=== PATIENT | male | born 1960 | race Caucasian/White ===

== ENCOUNTER 2017-03-20 08:18 | Day surgery (SDC) | payer MEDICARE ==
[2017-03-20] MEDS ORDERED: Sodium Chloride 0.9% 250 ML IV ONE (09:41)
[2017-03-20 10:12] VITALS: O2SAT 100
[2017-03-20] MEDS ORDERED: Propofol 10 mg/ml Inj (20 ML) ONE ×2 (11:10→11:36)
[2017-03-20 11:53] VITALS: TEMP 97
[2017-03-20 12:12] VITALS: BP 140/78; PULSE 68; RESP 12
== END 2017-03-20 12:14 | disposition home or self-care (01) ==
LOC: H.ENDO 08:18
PROVIDERS: ATTEND Internal Medicine Gastroenterology
DX: Z12.11 Encounter for screening for malignant neoplasm of colon (principal); Z21 Asymptomatic human immunodeficiency virus [HIV] infection status; N19 Unspecified kidney failure; K64.8 Other hemorrhoids; K74.60 Unspecified cirrhosis of liver; K25.9 Gastric ulcer, unspecified as acute or chronic, without hemorrhage or perforation; K31.819 Angiodysplasia of stomach and duodenum without bleeding
CPT/HCPCS: 43239; 88305; 88313; G0121; J2704; J7040

== ENCOUNTER 2017-06-17 07:33 | Day surgery (SDC) | payer MEDICARE ==
[2017-06-17] MEDS ORDERED: Sodium Chloride 0.9% 250 ML IV ONE (08:10)
[2017-06-17] MEDS ORDERED: Propofol 10 mg/ml Inj (20 ML) ONE (09:30)
[2017-06-17 10:00] VITALS: BP 130/68; PULSE 55; RESP 14; TEMP 96.8; O2SAT 98
== END 2017-06-17 10:14 | disposition home or self-care (01) ==
LOC: H.ENDO 07:33
PROVIDERS: ATTEND Internal Medicine Gastroenterology
DX: K29.70 Gastritis, unspecified, without bleeding (principal); K29.80 Duodenitis without bleeding; K76.6 Portal hypertension; K31.89 Other diseases of stomach and duodenum; Z21 Asymptomatic human immunodeficiency virus [HIV] infection status; K74.60 Unspecified cirrhosis of liver; B19.20 Unspecified viral hepatitis C without hepatic coma
CPT/HCPCS: 43239; 88305; J2001; J2704; J3010; J7040

== ENCOUNTER 2017-12-23 07:20 | Emergency (ER) | payer MEDICARE ==
[2017-12-23 07:27] VITALS: BMI 23.5
[2017-12-23 07:30] VITALS: BP 162/73; PULSE 74; RESP 16; TEMP 97; O2SAT 100
[2017-12-23] MEDS ORDERED: Sodium Chloride 0.9% 1,000 ML IV STA (07:51)
--- NOTE | 2017-12-23 07:56 | ED PDOC ---
HPI: Abdomen Time Seen by Provider: 12/23/17 07:32 Chief Complaint (Nursing): Back Pain Chief Complaint (Provider): Abd pain History Per: Patient History/Exam Limitations: no limitations Onset/Duration Of Symptoms: Days (1.5 weeks) Current Symptoms Are (Timing): Still Present Additional Complaint(s): Pt. fell 1.5 weeks ago onto his left abd. Has had pain there since. No numbness, tingles, weakness. Accidentally slipped on ice. No dysuria. No back pain. No nausea, vomit. No diarrhea. Ambulates with no issues. No chest pain or head injury. No arm or leg pain. Past Medical History Reviewed: Nursing Documentation, Vital Signs Vital Signs: Last Vital Signs Temp 97.0 F L 12/23/17 07:27 Pulse 74 12/23/17 07:27 Resp 16 12/23/17 07:27 BP 162/73 H 12/23/17 07:27 Pulse Ox 100 12/23/17 11:15 - Medical History PMH: HIV, HTN, Chronic Kidney Disease, Seizures - Family History Family History: States: Unknown Family Hx - Social History Alcohol: None Drugs: Denies - Home Medications Home Medications: Ambulatory Orders Medication Instructions Recorded Unobtainable 03/20/17 - Allergies Allergies/Adverse Reactions: Allergies Allergy/AdvReac Type Severity Reaction Status Date / Time sulfamethoxazole Allergy RASH Verified 06/17/17 08:09 [From Bactrim] trimethoprim [From Bactrim] Allergy RASH Verified 06/17/17 08:09 Review of Systems ROS Statement: Except As Marked, All Systems Reviewed And Found Negative Gastrointestinal: Positive for: Abdominal Pain Physical Exam - Reviewed Nursing Documentation Reviewed: Yes Vital Signs Reviewed: Yes - Physical Exam Appears: Positive for: Non-toxic, No Acute Distress Head Exam: Positive for: ATRAUMATIC, NORMAL INSPECTION, NORMOCEPHALIC Skin: Positive for: Normal Color, Warm, DRY Eye Exam: Positive for: EOMI, Normal appearance, PERRL ENT: Positive for: Normal ENT Inspection Neck: Positive for: Normal, Painless ROM Cardiovascular/Chest: Positive for: Regular Rate, Rhythm Respiratory: Positive for: CNT, Normal Breath Sounds Gastrointestinal/Abdominal: Positive for: Bowel Sounds, Soft, Tenderness (L lateral abd and L upper abd) Back: Positive for: Normal Inspection. Negative for: L CVA Tenderness, R CVA Tenderness Extremity: Positive for: Normal ROM. Negative for: Tenderness, Pedal Edema Neurologic/Psych: Positive for: Alert, Oriented - Laboratory Results Result Diagrams: 12/23/17 08:35 12/23/17 08:35 Interpretation Of Abn Labs: 12.7 wbc, lipase borderline; all else same as old - ECG O2 Sat by Pulse Oximetry: 100 Pulse Ox Interpretation: Normal - Progress ED Course And Treament: 1117: Stable. CT with no acute trauma or pancreatic issues. Lipase borderline. Likely not pancreatitis. Fu with pcp. AAOx3. Pain free. Disposition - Clinical Impression Clinical Impression: Abdominal trauma - Patient ED Disposition Is Patient to be Admitted: No Counseled Patient/Family Regarding: Studies Performed, Diagnosis, Need For Followup - Disposition Referrals: [facility] [Outside] - 12/24/17 Disposition: Routine/Home Disposition Time: 11:18 Condition: STABLE Additional Instructions: Return if not better in 3 days. Instructions: Acute Abdominal Pain (ED)
[2017-12-23 08:53] LABS: BASO # 0.1 K/uL (0.0-0.2); BASO % 0.6 % (0.0-2.0); EOS % 0.3 % (0.0-4.0); HEMOGLOBIN 12.5 g/dL (12.0-18.0); LYMPH # 1.2 K/uL (1.0-4.3); LYMPH % 9.7 % (20.0-40.0); MEAN CELL VOLUME 104.9 fl (80.0-94.0); MEAN CORPUSCULAR HEMOGLOBIN 34.6 pg (27.0-31.0); MEAN CORPUSCULAR HGB CONC 32.9 g/dL (33.0-37.0); MONO # 0.7 K/uL (0.0-0.8); MONO % 5.1 % (0.0-10.0); NEUT # 10.7 K/uL (1.8-7.0); NEUT % 84.3 % (50.0-75.0); NRBC % 0.1 % (0.0-0.0); PLATELET COUNT 74 K/uL (130-400); RED CELL DISTRIBUTION WIDTH 14.6 % (11.5-14.5); WHITE BLOOD COUNT 12.7 K/uL (4.8-10.8)
[2017-12-23 08:55] LABS: INR 1.1 (0.9-1.2); PARTIAL THROMBOPLASTIN TIME 27.1 Seconds (25.6-37.1); PROTHROMBIN TIME 12.4 Seconds (9.8-13.1)
[2017-12-23 08:57] LABS: ALB/GLOB RATIO 1.1 (1.0-2.1); ALT/SGPT 49 U/L (21-72); AST/SGOT 36 U/L (17-59); BLOOD UREA NITROGEN 21 mg/dl (9-20); CALCIUM 9.2 mg/dL (8.4-10.2); GFR AFRICAN-AMERICAN > 60; GFR NON-AFRICAN AMERICAN > 60; LIPASE 348 U/L (23-300)
--- NOTE | 2017-12-23 10:08 | CT ---
PROCEDURE: CT Abdomen and Pelvis with contrast HISTORY: trauma COMPARISON: Comparison is made to the previous study dated 03/11/2017 TECHNIQUE: Contrast dose: 95 cc of Omnipaque 300. Axial and reformatted coronal and sagittal CT images of the abdomen and pelvis were obtained after IV contrast administration. Radiation dose: Total exam DLP = 753.81 mGy-cm. This CT exam was performed using one or more of the following dose reduction techniques: Automated exposure control, adjustment of the mA and/or kV according to patient size, and/or use of iterative reconstruction technique. FINDINGS: LOWER THORAX: No evidence of pleural effusion or pneumothorax at the lower portion of the chest. No evidence of acute pathology in the lungs. LIVER: Cirrhotic appearing of the liver is again noted. No evidence of liver laceration or enhancing mass lesion in this study. The portal vein is patent. GALLBLADDER AND BILE DUCTS: Unremarkable. PANCREAS: Unremarkable. No gross lesion or ductal dilatation. SPLEEN: The spleen is upper normal limit measures up to 12.8 centimeter in the longitudinal diameter. ADRENALS: Unremarkable. No mass. KIDNEYS AND URETERS: Again noted is 5 millimeter nonobstructing calculus at the lower pole of the left kidney. There is 2- 3 millimeter nonobstructing calculus at the lower pole of the right kidney. No evidence of hydronephrosis. The kidneys enhance symmetrically. VASCULATURE: Unremarkable. No aortic aneurysm. BOWEL: Unremarkable. No obstruction. No gross mural thickening. APPENDIX: Normal appendix. PERITONEUM: Unremarkable. No free fluid. No free air. LYMPH NODES: Unremarkable. No enlarged lymph nodes. BLADDER: Unremarkable. REPRODUCTIVE: Unremarkable. BONES: No acute fracture. Diffuse osteoporosis is again noted. Subcortical sclerotic changes at the left femoral head are also again noted. OTHER FINDINGS: None. IMPRESSION: No CT evidence of acute posttraumatic changes in the abdomen and pelvis. Liver cirrhosis with findings suggestive of mild portal hypertension. Bilateral nonobstructing renal calculi. No evidence of hydronephrosis.
[2017-12-23 10:56] LABS: EOSINOPHIL 1 % (0-7); LYMPHOCYTE 7 % (20-50); MONOCYTE 6 % (0-10); NEUTROPHIL 86 % (42-75); PLATELET ESTIMATE DECREASED (NORMAL); TOTAL CELLS COUNTED 100
[2017-12-23 10:57] LABS: TOXIC GRANULATION PRESENT
== END 2017-12-23 11:47 | disposition home or self-care (01) ==
LOC: H.ER 07:20
DX: S39.91XA Unspecified injury of abdomen, initial encounter (principal); W19.XXXA Unspecified fall, initial encounter; I12.9 Hypertensive chronic kidney disease with stage 1 through stage 4 chronic kidney disease, or unspecified chronic kidney disease; N18.9 Chronic kidney disease, unspecified; Z21 Asymptomatic human immunodeficiency virus [HIV] infection status
CPT/HCPCS: 74177; 80053; 83690; 85025; 85610; 85730; 96374; 99283; J1885; J7040

== ENCOUNTER 2018-03-20 09:53 | Inpatient (IN) | payer MEDICARE ==
[2018-03-20 09:53] VITALS: BMI 23.5
[2018-03-20] MEDS ORDERED: Iohexol 240 (50 ml) PO ONE (10:40)
[2018-03-20] MEDS ORDERED: Iohexol 240 (50 ml) ONE (11:36)
[2018-03-20 12:09] LABS: ALB/GLOB RATIO 1.1 (1.0-2.1); ALT/SGPT 65 U/L (21-72); AST/SGOT 53 U/L (17-59); BLOOD UREA NITROGEN 30 mg/dl (9-20); CALCIUM 9.4 mg/dL (8.4-10.2); GFR AFRICAN-AMERICAN > 60; GFR NON-AFRICAN AMERICAN > 60; LIPASE 158 U/L (23-300)
[2018-03-20 12:43] LABS: BASO % 0.2 % (0.0-2.0); HEMOGLOBIN 12.5 g/dL (12.0-18.0); LYMPH # 1.5 K/uL (1.0-4.3); LYMPH % 9.3 % (20.0-40.0); MEAN CELL VOLUME 109.8 fl (80.0-94.0); MEAN CORPUSCULAR HEMOGLOBIN 36.6 pg (27.0-31.0); MEAN CORPUSCULAR HGB CONC 33.4 g/dL (33.0-37.0); MEAN PLATELET VOLUME 10.2 fl (7.2-11.7); MONO # 0.9 K/uL (0.0-0.8); MONO % 5.7 % (0.0-10.0); NEUT % 84.8 % (50.0-75.0); PLATELET COUNT 62 K/uL (130-400); RBC 3.42 Mil/uL (4.40-5.90); RED CELL DISTRIBUTION WIDTH 14.2 % (11.5-14.5); WHITE BLOOD COUNT 16.5 K/uL (4.8-10.8)
[2018-03-20] MEDS ORDERED: Iohexol 300 100 ML IJ ONE (13:22)
[2018-03-20] MEDS ORDERED: Sodium Chloride 0.9% 1,000 ML IV SCH (14:00)
[2018-03-20 14:30] LABS: BANDS 2 % (0-2); LYMPHOCYTE 9 % (20-50); METAMYELOCYTE 1 % (0-0); MONOCYTE 6 % (0-10); NEUTROPHIL 82 % (42-75); TOTAL CELLS COUNTED 100
[2018-03-20 14:31] LABS: ANISOCYTOSIS SLIGHT; PLATELET ESTIMATE DECREASED (NORMAL)
--- NOTE | 2018-03-20 14:46 | CT ---
PROCEDURE: CT Abdomen and Pelvis with contrast HISTORY: Abdominal pain COMPARISON: 12/23/2017 CT abdomen and pelvis. 03/01/2018 abdominal ultrasound TECHNIQUE: Contrast dose: 99 cc Omnipaque 300 Radiation dose: Total exam DLP = 524.40 mGy-cm. This CT exam was performed using one or more of the following dose reduction techniques: Automated exposure control, adjustment of the mA and/or kV according to patient size, and/or use of iterative reconstruction technique. FINDINGS: LOWER THORAX: Unremarkable. LIVER: Stable cirrhotic appearing liver. GALLBLADDER AND BILE DUCTS: Unremarkable. PANCREAS: Unremarkable. No gross lesion or ductal dilatation. SPLEEN: Stable splenomegaly ADRENALS: Unremarkable. No mass. KIDNEYS AND URETERS: Multiple small and bilateral nonobstructing renal calculi. Ureters are normal in caliber and course. VASCULATURE: Unremarkable. No aortic aneurysm. BOWEL: Severe inflammatory changes affecting the ascending colon over a distance of approximately 12 cm. Mucosal/mural thickening identified. Pericolonic inflammatory change noted. No evidence of perforation, loculated air or free air. APPENDIX: The appendix is spared of the adjacent inflammatory changes affecting the cecum and ascending colon PERITONEUM: Unremarkable. No free fluid. No free air. LYMPH NODES: Unremarkable. No enlarged lymph nodes. BLADDER: Unremarkable. REPRODUCTIVE: Unremarkable. BONES: OTHER FINDINGS: None. IMPRESSION: Severe/acute segmental colitis affecting cecum and adjacent ascending colon with sparing of the appendix. The terminal ileum is also unaffected
[2018-03-20] MEDS ORDERED: Piperacillin/Tazobact 4.5 GM in Sodium Chloride 0.9% 100 ML IVPB STA (15:08)
--- NOTE | 2018-03-20 15:36 | ED PDOC ---
HPI: Abdomen Time Seen by Provider: 03/20/18 10:37 Chief Complaint (Nursing): Abdominal Pain Chief Complaint (Provider): Abdominal Pain History Per: Patient History/Exam Limitations: no limitations Onset/Duration Of Symptoms: Days (2) Outside of [place] travel?: No Current Symptoms Are (Timing): Still Present Location Of Pain/Discomfort: RUQ Quality Of Discomfort: Dull, Aching, Pressure Associated Symptoms: Loss Of Appetite Exacerbating Factors: None Past Medical History Vital Signs: Last Vital Signs Temp 98.4 F 03/20/18 19:34 Pulse 77 03/20/18 19:34 Resp 16 03/20/18 19:34 BP 140/76 03/20/18 19:34 Pulse Ox 99 03/20/18 19:34 - Medical History PMH: HIV, HTN, Chronic Kidney Disease, Seizures Other PMH: chirrosis - Family History Family History: States: Unknown Family Hx - Home Medications Home Medications: Ambulatory Orders Medication Instructions Recorded Allopurinol [Zyloprim] 1 tab PO DAILY 03/20/18 Atorvastatin Calcium [Atorvastatin 20 mg PO DAILY 03/20/18 Calcium] Bictegrav/Emtricit/Tenofov [place] 1 tab PO DAILY 03/20/18 [Biktarvy 50-200-25 mg Tablet] Gabapentin [Neurontin] 1 tab PO TID 03/20/18 Metoprolol Tartrate [Lopressor] 1 tab PO BID 03/20/18 Omeprazole [Omeprazole] 1 cap PO DAILY 03/20/18 Prednisone [Prednisone] 1 tab PO Q8 03/20/18 SITagliptin [Januvia] 1 tab PO DAILY 03/20/18 Valsartan [Diovan] 1 tab PO DAILY 03/20/18 oxyCODONE [oxyCODONE Immediate 1 tab PO Q6 PRN 03/20/18 Release Tab] - Allergies Allergies/Adverse Reactions: Allergies Allergy/AdvReac Type Severity Reaction Status Date / Time sulfamethoxazole Allergy RASH Verified 06/17/17 08:09 [From Bactrim] trimethoprim [From Bactrim] Allergy RASH Verified 06/17/17 08:09 Review of Systems ROS Statement: Except As Marked, All Systems Reviewed And Found Negative Gastrointestinal: Positive for: Abdominal Pain Physical Exam - Reviewed Nursing Documentation Reviewed: Yes Vital Signs Reviewed: Yes - Physical Exam Appears: Positive for: No Acute Distress, Uncomfortable Head Exam: Positive for: ATRAUMATIC, NORMAL INSPECTION Skin: Positive for: Normal Color, Warm, Rash Cardiovascular/Chest: Positive for: Regular Rate, Rhythm. Negative for: Edema, Gallop, Murmur, Bradycardia, Tachycardia, Friction Rub, Irregularly Irregular Respiratory: Positive for: Normal Breath Sounds. Negative for: Decreased Breath Sounds, Accessory Muscle Use, Crackles, Rales, Rhonchi, Wheezing, Respiratory Distress Pulses-Carotid (L): 2+ Pulses-Carotid (R): 2+ Pulses-Radial (L): 2+ Pulses-Radial (R): 2+ Gastrointestinal/Abdominal: Positive for: Normal Exam, Bowel Sounds (positive in all quadrants), Tenderness (LUQ tender without periotneal signs, rebound or guarding), Distended, Asicites (mild ascites) - Laboratory Results Result Diagrams: 03/20/18 11:00 03/20/18 11:36 - ECG O2 Sat by Pulse Oximetry: 98 Medical Decision Making Medical Decision Making: R/O liver failure R/O acute abdomen Admit for colitis with significant comorbidities- HIV, HTN, chirrosis, and elevated white count ED course- CT Abdomen,CBC,CMP, UA Tx with zosyn Admit to Disposition - Clinical Impression Clinical Impression: Colitis presumed infectious - Patient ED Disposition Is Patient to be Admitted: Yes Discussed With : Charlee Gibson (via resident) Doctor Will See Patient In The: Hospital Counseled Patient/Family Regarding: Studies Performed, Diagnosis, Need For Followup - Disposition Disposition Time: 15:36 Condition: STABLE - Pt Status Changed To: Hospital Disposition Of: Inpatient - Admit Certification Admit to Inpatient:: After my assessment, the patient will require hospitalization for at least two midnights. This is because of the severity of symptoms shown, intensity of services needed, and/or the medical risk in this patient being treated as an outpatient.
[2018-03-20 15:51] LABS: VENOUS BLOOD GAS PCO2 49 mmHg (40-60); VENOUS BLOOD GAS PO2 21 mm/Hg (30-55); VENOUS BLOOD PH 7.38 (7.32-7.43)
--- NOTE | 2018-03-20 17:54 | CP.PCM.CON ---
History of Present Illness - History of Present Illness History of Present Illness: 57 yo male with DM and HIV coming to ER for intractable abdominal pain. Review of Systems - Constitutional Constitutional: absent: Chills - EENT Eyes: absent: Blurred Vision Nose/Mouth/Throat: absent: Epistaxis - Cardiovascular Cardiovascular: absent: Chest Pain - Respiratory Respiratory: Snoring. absent: Cough - Gastrointestinal Gastrointestinal: As Per HPI Past Patient History - Past Medical History & Family History Past Medical History?: Yes - Past Social History Smoking Status: Heavy Smoker > 10 Cigarettes Daily - CARDIAC Hx Hypertension: Yes - NEUROLOGICAL Hx Seizures: Yes - RENAL Hx Chronic Kidney Disease: Yes - ENDOCRINE/METABOLIC Hx Endocrine Disorders: Yes Hx Diabetes Mellitus Type 2: Yes - HEMATOLOGICAL/ONCOLOGICAL Hx Human Immunodeficiency Virus (HIV): Yes - INTEGUMENTARY Hx Dermatological Problems: Yes Hx Eczema: Yes - GASTROINTESTINAL Hx Ulcer: Yes Other/Comment: Liver Cirrhosis - PSYCHIATRIC Hx Psychophysiologic Disorder: Yes Hx Substance Use: No - SURGICAL HISTORY Hx Surgeries: Yes Hx Arthroscopy: Yes - ANESTHESIA Hx Anesthesia: Yes Hx Anesthesia Reactions: No Hx Malignant Hyperthermia: No Meds Allergies/Adverse Reactions: Allergies Allergy/AdvReac Type Severity Reaction Status Date / Time sulfamethoxazole Allergy RASH Verified 06/17/17 08:09 [From Bactrim] trimethoprim [From Bactrim] Allergy RASH Verified 06/17/17 08:09 - Medications Medications: Current Medications Sodium Chloride (Sodium Chloride 0.9%) 1,000 mls @ 1,000 mls/hr IV .Q1H VASILE Stop: 03/21/18 13:46 Last Admin: 03/20/18 14:30 Dose: 1,000 mls/hr Physical Exam - Head Exam Head Exam: ATRAUMATIC - ENT Exam ENT Exam: Normal Exam - Neck Exam Neck exam: Positive for: Normal Inspection - Respiratory Exam Respiratory Exam: Clear to Auscultation Bilateral - Cardiovascular Exam Cardiovascular Exam: REGULAR RHYTHM, +S1, +S2 - GI/Abdominal Exam GI & Abdominal Exam: Normal Bowel Sounds, Soft, Tenderness Additional comments: Moderate tenderness right side of abdomen. No guarding or rebound. Results - Vital Signs Recent Vital Signs: Last Vital Signs Temp 99.5 F 03/20/18 10:05 Pulse 98 H 03/20/18 10:05 Resp 19 03/20/18 10:05 BP 122/73 05/04/18 10:05 Pulse Ox 98 03/20/18 15:36 - Labs Result Diagrams: 03/20/18 11:00 03/20/18 11:36 Labs: Laboratory Results - last 24 hr 03/20/18 03/20/18 03/20/18 11:00 11:11 11:36 WBC 16.5 H RBC 3.42 L Hgb 12.5 Hct 37.5 MCV 109.8 H D MCH 36.6 H MCHC 33.4 RDW 14.2 Plt Count 62 L MPV 10.2 Neut % (Auto) 84.8 H Lymph % (Auto) 9.3 L [place] % (Auto) 5.7 Eos % (Auto) 0.0 Baso % (Auto) 0.2 Neut # (Auto) 14.0 H Lymph # (Auto) 1.5 [place] # (Auto) 0.9 H Eos # (Auto) 0.0 Baso # (Auto) 0.0 Neutrophils % (Manual) 82 H Band Neutrophils % 2 Lymphocytes % (Manual) 9 L Monocytes % (Manual) 6 Metamyelocytes % 1 H Platelet Estimate Decreased L Anisocytosis (manual) Slight Macrocytosis (manual) Slight pO2 VBG pH VBG pCO2 VBG HCO3 VBG Total CO2 VBG O2 Sat (Calc) VBG Base Excess VBG Potassium Glucose Lactate FiO2 Sodium 135 Potassium 4.9 Chloride 97 L Carbon Dioxide 26 Anion Gap 17 BUN 30 H Creatinine 0.8 Est GFR ( Amer) > 60 Est GFR (Non-Af Amer) > 60 POC Glucose (mg/dL) 124 H Random Glucose 132 H Lactic Acid Calcium 9.4 Total Bilirubin 0.9 AST 53 ALT 65 Alkaline Phosphatase 105 Total Protein 7.6 Albumin 4.0 Globulin 3.5 Albumin/Globulin Ratio 1.1 Lipase 158 Venous Blood Potassium 03/20/18 03/20/18 11:36 15:11 WBC RBC Hgb Hct MCV MCH MCHC RDW Plt Count MPV Neut % (Auto) Lymph % (Auto) [place] % (Auto) Eos % (Auto) Baso % (Auto) Neut # (Auto) Lymph # (Auto) [place] # (Auto) Eos # (Auto) Baso # (Auto) Neutrophils % (Manual) Band Neutrophils % Lymphocytes % (Manual) Monocytes % (Manual) Metamyelocytes % Platelet Estimate Anisocytosis (manual) Macrocytosis (manual) pO2 21 L VBG pH 7.38 VBG pCO2 49 VBG HCO3 25.5 VBG Total CO2 30.5 H VBG O2 Sat (Calc) 31.0 L VBG Base Excess 3.0 H VBG Potassium 4.6 Glucose 136 H Lactate 1.9 FiO2 21.0 Sodium 132.0 Potassium Chloride 98.0 Carbon Dioxide Anion Gap BUN Creatinine Est GFR ( Amer) Est GFR (Non-Af Amer) POC Glucose (mg/dL) Random Glucose Lactic Acid 2.3 H Calcium Total Bilirubin AST ALT Alkaline Phosphatase Total Protein Albumin Globulin Albumin/Globulin Ratio Lipase Venous Blood Potassium 4.6 - Imaging and Cardiology CT scan - abdomen Status: Report reviewed by me Assessment & Plan (1) Colitis presumed infectious Assessment and Plan: Patient with abdominal pain, elevated WBC, and CT showing severe inflammation ascending colon over 12 cm. Clinical picture most consistent with infection. IV hydration and broad spectrum antibiotics. Will follow with you. Status: Acute
[2018-03-20] MEDS ORDERED: metroNIDAZOLE 500mg/100ml NS 250 MG in Premixed IV 1 EA IVPB SCH (18:30)
[2018-03-20] MEDS ORDERED: metroNIDAZOLE 500mg/100ml NS IVPB SCH (18:30)
--- NOTE | 2018-03-20 18:41 | CARD ---
APPROVED REPORT EKG Measurement Heart [id number] <Conclusion> Normal sinus rhythm Possible Left atrial enlargement Left ventricular hypertrophy Nonspecific ST abnormality Abnormal ECG
--- NOTE | 2018-03-20 19:16 | CP.PCM.HP ---
History of Present Illness - History of Present Illness History of Present Illness: Hx taken from patient Full code PMD: Dr Jordan([facility]) Next of kin: Kiya Castañeda( [phone]) 57 y/o M with PMHx of HIV, Liver cirrhosis, polymyositis and DM was sent to ER by PMD with c/o RLQ pain for the past 4 days. As per patient pain doesnt radiate, denies nausea, vomiting, diarrhea, dysuria. Admits fever last night and earlier today of 101. Cough for 2 days. Pain worsened for the past 2 days. Has been feeling weaker than usual. He reports Hx of polymyositis treated with Prednisone 15 mg daily and chronic pain for what he f/u with pain management as outpatient. Traveled to [place] few months ago. No other travel Hx. New onset rash in legs and arm for the past few weeks. States he has been compliant with meds. Denies melena, hematochezia. Patient has hx of Hep C, treated and "cured" as per patient. Denies ETOH or drugs. ED course: WBC: 16.5 Initial Lactate elevated, repeated WNL Abd CT: Severe colitis affecting Cecum and ascending colon(See full report) IV fluids 1L Zosyn 4.5g IV once GI consulted PMHx: See HPI Sxhx: L/TKR SHx: Tobacco: 2-3 cig/day FHx: Mother: Breast Ca/DM Allergies: Bactrim Present on Admission - Present on Admission Any Indicators Present on Admission: No Review of Systems - Review of Systems All systems: reviewed and no additional remarkable complaints except (Those described on HPI) Past Patient History - Past Medical History & Family History Past Medical History?: Yes - Past Social History Smoking Status: Light Smoker < 10 Cigarettes Daily Alcohol: Occasional Home Situation {Lives}: With Family - CARDIAC Hx Hypertension: Yes - PULMONARY Hx Respiratory Disorders: No - NEUROLOGICAL Hx Seizures: Yes - HEENT Hx HEENT Problems: No - RENAL Hx Chronic Kidney Disease: No - ENDOCRINE/METABOLIC Hx Endocrine Disorders: Yes Hx Diabetes Mellitus Type 2: Yes - HEMATOLOGICAL/ONCOLOGICAL Hx Blood Disorders: Yes Hx Hepatitis C: Yes Hx Human Immunodeficiency Virus (HIV): Yes - INTEGUMENTARY Hx Dermatological Problems: Yes Hx Eczema: Yes - MUSCULOSKELETAL/RHEUMATOLOGICAL Hx Musculoskeletal Disorders: Yes - GASTROINTESTINAL Hx Gastrointestinal Disorders: Yes Hx Ulcer: Yes Other/Comment: Liver Cirrhosis - GENITOURINARY/GYNECOLOGICAL Hx Genitourinary Disorders: No - PSYCHIATRIC Hx Psychophysiologic Disorder: Yes Hx Substance Use: No - SURGICAL HISTORY Hx Surgeries: Yes Hx Arthroscopy: Yes - ANESTHESIA Hx Anesthesia: Yes Hx Anesthesia Reactions: No Hx Malignant Hyperthermia: No Meds Allergies/Adverse Reactions: Allergies Allergy/AdvReac Type Severity Reaction Status Date / Time sulfamethoxazole Allergy RASH Verified 06/17/17 08:09 [From Bactrim] trimethoprim [From Bactrim] Allergy RASH Verified 06/17/17 08:09 Physical Exam - Constitutional Appears: Non-toxic, No Acute Distress - Head Exam Head Exam: ATRAUMATIC, NORMAL INSPECTION - Eye Exam Eye Exam: EOMI, PERRL - ENT Exam ENT Exam: Mucous Membranes Moist - Neck Exam Neck exam: Negative for: Lymphadenopathy - Respiratory Exam Respiratory Exam: Clear to Auscultation Bilateral, NORMAL BREATHING PATTERN. absent: Decreased Breath Sounds, Rales, Rhonchi, Wheezes - Cardiovascular Exam Cardiovascular Exam: REGULAR RHYTHM, +S1, +S2. absent: Gallop - GI/Abdominal Exam GI & Abdominal Exam: Distended (Slightly), Soft, Tenderness (RLQ). absent: Rebound, Rigid - Extremities Exam Extremities exam: Positive for: normal capillary refill. Negative for: calf tenderness, pedal edema Additional comments: LE Strength 4/5 B/L - Back Exam Back exam: absent: CVA tenderness (L), CVA tenderness (R) - Neurological Exam Neurological exam: Alert, Oriented x3, Reflexes Normal - Psychiatric Exam Psychiatric exam: Normal Affect, Normal Mood - Skin Skin Exam: Rash (Maculopapular scaly, nonconfluent, dry rash in both legs and arm), Warm Results - Vital Signs Recent Vital Signs: Last Vital Signs Temp 99.5 F 03/20/18 10:05 Pulse 98 H 03/20/18 10:05 Resp 19 03/20/18 10:05 BP 122/73 03/20/18 10:05 Pulse Ox 98 03/20/18 15:36 - Labs Result Diagrams: 03/20/18 11:00 03/20/18 11:36 Labs: Laboratory Results - last 24 hr 03/20/18 03/20/18 03/20/18 11:00 11:11 11:36 WBC 16.5 H RBC 3.42 L Hgb 12.5 Hct 37.5 MCV 109.8 H D MCH 36.6 H MCHC 33.4 RDW 14.2 Plt Count 62 L MPV 10.2 Neut % (Auto) 84.8 H Lymph % (Auto) 9.3 L [place] % (Auto) 5.7 Eos % (Auto) 0.0 Baso % (Auto) 0.2 Neut # (Auto) 14.0 H Lymph # (Auto) 1.5 [place] # (Auto) 0.9 H Eos # (Auto) 0.0 Baso # (Auto) 0.0 Neutrophils % (Manual) 82 H Band Neutrophils % 2 Lymphocytes % (Manual) 9 L Monocytes % (Manual) 6 Metamyelocytes % 1 H Platelet Estimate Decreased L Anisocytosis (manual) Slight Macrocytosis (manual) Slight pO2 VBG pH VBG pCO2 VBG HCO3 VBG Total CO2 VBG O2 Sat (Calc) VBG Base Excess VBG Potassium Glucose Lactate FiO2 Sodium 135 Potassium 4.9 Chloride 97 L Carbon Dioxide 26 Anion Gap 17 BUN 30 H Creatinine 0.8 Est GFR ( Amer) > 60 Est GFR (Non-Af Amer) > 60 POC Glucose (mg/dL) 124 H Random Glucose 132 H Lactic Acid Calcium 9.4 Total Bilirubin 0.9 AST 53 ALT 65 Alkaline Phosphatase 105 Total Protein 7.6 Albumin 4.0 Globulin 3.5 Albumin/Globulin Ratio 1.1 Lipase 158 Venous Blood Potassium 03/20/18 03/20/18 11:36 15:11 WBC RBC Hgb Hct MCV MCH MCHC RDW Plt Count MPV Neut % (Auto) Lymph % (Auto) [place] % (Auto) Eos % (Auto) Baso % (Auto) Neut # (Auto) Lymph # (Auto) [place] # (Auto) Eos # (Auto) Baso # (Auto) Neutrophils % (Manual) Band Neutrophils % Lymphocytes % (Manual) Monocytes % (Manual) Metamyelocytes % Platelet Estimate Anisocytosis (manual) Macrocytosis (manual) pO2 21 L VBG pH 7.38 VBG pCO2 49 VBG HCO3 25.5 VBG Total CO2 30.5 H VBG O2 Sat (Calc) 31.0 L VBG Base Excess 3.0 H VBG Potassium 4.6 Glucose 136 H Lactate 1.9 FiO2 21.0 Sodium 132.0 Potassium Chloride 98.0 Carbon Dioxide Anion Gap BUN Creatinine Est GFR ( Amer) Est GFR (Non-Af Amer) POC Glucose (mg/dL) Random Glucose Lactic Acid 2.3 H Calcium Total Bilirubin AST ALT Alkaline Phosphatase Total Protein Albumin Globulin Albumin/Globulin Ratio Lipase Venous Blood Potassium 4.6 Assessment & Plan - Assessment and Plan (Free Text) Assessment: 57 y/o M with PMhx of HIV, DM, HTN, Liver cirrhosis admitted for Severe Colitis Colitis Acute Abd pain CT scan findings(Cecum and ascending colon) Fever before admission Leukocytosis GI consult Start Zosyn and Flagyl IV Liquid diet F/U Labs AM HIV without AIDS CD4 573 with Undetectable VL on 02/20/18 C/W Home meds F/U CXR ID consult Cough fever before admission F/U CXR VS WNL Liver cirrhosis Poss due to Hx of Hep C Liver enzimes and albumin WNL Hx of polymyositis Hold low dose prednisone for now due to fever and poss intrabd infection Muscle weakness F/U ESR Pain control Thrombocitopenia Chronic Monitor Rash Unknown Connective tissue disease vs Eczema vs Psoriasis Apply skin emollients for now DM2 Controlled with diet Steroid induced F/U HgbA1c Accuchecks AM Hypoglycemia protocol DVT prophylaxis SCDs for now
[2018-03-20] MEDS: metroNIDAZOLE 500mg/100ml NS 100 ML IVPB SCH (22:14)
[2018-03-20] MEDS: Sodium Chloride 0.9% 1,000 ML IV SCH (22:15)
[2018-03-20] MEDS: Hydrocerin CREAM TOP SCH (22:15)
[2018-03-20] MEDS: Piperacillin/Tazobact 3.375 GM in Sodium Chloride 0.9% 100 ML IVPB SCH (23:30)
[2018-03-21] MEDS: metroNIDAZOLE 500mg/100ml NS 100 ML IVPB SCH ×3 (01:58→17:52)
[2018-03-21] MEDS: Piperacillin/Tazobact 3.375 GM in Sodium Chloride 0.9% 100 ML IVPB SCH ×4 (04:44→21:03)
[2018-03-21 05:33] LABS: BASO % 0.2 % (0.0-2.0); EOS % 0.4 % (0.0-4.0); HEMOGLOBIN 10.5 g/dL (12.0-18.0); LYMPH # 1.2 K/uL (1.0-4.3); LYMPH % 16.7 % (20.0-40.0); MEAN CELL VOLUME 109.5 fl (80.0-94.0); MEAN CORPUSCULAR HEMOGLOBIN 37.1 pg (27.0-31.0); MEAN CORPUSCULAR HGB CONC 33.9 g/dL (33.0-37.0); MEAN PLATELET VOLUME 9.5 fl (7.2-11.7); MONO # 0.5 K/uL (0.0-0.8); MONO % 6.7 % (0.0-10.0); NEUT # 5.4 K/uL (1.8-7.0); RBC 2.84 Mil/uL (4.40-5.90); RED CELL DISTRIBUTION WIDTH 14.1 % (11.5-14.5); WHITE BLOOD COUNT 7.1 K/uL (4.8-10.8)
[2018-03-21 06:23] LABS: ALBUMIN 3.2 g/dL (3.5-5.0); ALT/SGPT 58 U/L (21-72); AST/SGOT 38 U/L (17-59); BLOOD UREA NITROGEN 26 mg/dl (9-20); CALCIUM 8.5 mg/dL (8.4-10.2); GFR AFRICAN-AMERICAN > 60; GFR NON-AFRICAN AMERICAN > 60
[2018-03-21 06:40] LABS: INR 1.1 (0.9-1.2); PARTIAL THROMBOPLASTIN TIME 28.1 Seconds (25.6-37.1); PROTHROMBIN TIME 12.3 Seconds (9.8-13.1)
--- NOTE | 2018-03-21 07:27 | CP.PCM.PN ---
Subjective - Date & Time of Evaluation Date of Evaluation: 03/21/18 Time of Evaluation: 07:00 - Subjective Subjective: Pt seen and examined at bedside. Pt states continued abdominal pain as well as b /l lower extremity pain. Denies fevers/chills, n/v/d, chest pain, SOB, dyspnea, cough, calf tenderness, or pedal edema. Objective - Vital Signs/Intake and Output Vital Signs (last 24 hours): Temp Pulse Resp BP Pulse Ox 97.6 F 73 18 157/74 H 97 03/21/18 05:02 03/21/18 05:02 03/21/18 05:02 03/21/18 05:02 03/21/18 05:02 - Medications Medications: Current Medications Home Med (Bictegrav/Emtricit/Tenofov Ala [Biktarvy 50-200-25 Mg Tablet]) 1 tab PO DAILY [facility] Sodium Chloride (Sodium Chloride 0.9%) 1,000 mls @ 1,000 mls/hr IV .Q1H [facility] Stop: 03/21/18 13:46 Last Admin: 03/20/18 14:30 Dose: 1,000 mls/hr Piperacillin Sod/Tazobactam (Sod 3.375 gm/ Sodium Chloride) 100 mls @ 100 mls/ hr IVPB Q6 [facility] PRN Reason: Protocol Last Admin: 03/21/18 04:44 Dose: 100 mls/hr Metronidazole (Flagyl 500mg/100ml Ns) 100 mls @ 100 mls/hr IVPB Q6H [facility] Last Admin: 03/21/18 01:58 Dose: Not Given Sodium Chloride (Sodium Chloride 0.9%) 1,000 mls @ 100 mls/hr IV .Q10H [facility] Stop: 03/21/18 18:28 Last Admin: 03/20/18 22:15 Dose: 100 mls/hr Ketorolac Tromethamine (Toradol) 30 mg IVP Q6 PRN PRN Reason: Pain, severe (8-10) Ketorolac Tromethamine (Toradol) 15 mg IVP Q6 PRN PRN Reason: Pain, moderate (4-7) Last Admin: 03/20/18 22:16 Dose: 15 mg Metoprolol Tartrate (Lopressor) 100 mg PO BID [facility] Multi-Ingredient Cream (Hydrocerin Cream) 1 applic TOP BID [facility] Last Admin: 03/20/18 22:15 Dose: 1 applic Pantoprazole Sodium (Protonix Ec Tab) 20 mg PO DAILY [facility] Sitagliptin Phosphate (Januvia) 100 mg PO DAILY [facility] Valsartan (Diovan) 320 mg PO DAILY [facility] - Labs Labs: 03/21/18 04:40 03/21/18 04:40 PT 12.3 Seconds (9.8-13.1) 03/21/18 04:40 INR 1.1 (0.9-1.2) 03/21/18 04:40 APTT 28.1 Seconds (25.6-37.1) 03/21/18 04:40 - Additional Findings Additional findings: - Constitutional Appears: Non-toxic, No Acute Distress - Eye Exam Eye Exam: EOMI, PERRL - ENT Exam ENT Exam: Mucous Membranes Moist - Neck Exam Neck exam: Negative for: Lymphadenopathy - Respiratory Exam Respiratory Exam: Clear to Auscultation Bilateral, NORMAL BREATHING PATTERN. absent: Decreased Breath Sounds, Rales, Rhonchi, Wheezes - Cardiovascular Exam Cardiovascular Exam: REGULAR RHYTHM, +S1, +S2. absent: Gallop - GI/Abdominal Exam GI & Abdominal Exam: Soft, Tenderness (moderate RLQ). absent: Rebound, Rigid - Extremities Exam Extremities exam: Positive for: normal capillary refill. Negative for: calf tenderness, pedal edema Additional comments: LE Strength 4/5 B/L - Skin Skin Exam: Rash (Maculopapular scaly, nonconfluent, dry rash in both legs and arm), Warm Assessment and Plan - Assessment and Plan (Free Text) Assessment: 57 y/o M with PMhx of HIV, DM, HTN, Liver cirrhosis admitted for Severe Colitis 1) Colitis Acute Abd pain CT scan findings show acute/severe segmental (Cecum and ascending colon) colitis Subjective fever before admission Leukocytosis GI onboard ID onboard Zosyn and Flagyl IV, as per ID Liquid diet 2) HIV without AIDS CD4 573 with Undetectable VL on 02/20/18 C/W Home meds ID onboard 3) Cough fever before admission VSS WNL F/U CXR 4) Liver cirrhosis Poss due to Hx of Hep C Liver enzimes and albumin WNL 5) Hx of polymyositis Hold low dose prednisone for now due to fever and poss intrabd infection Muscle weakness Pain control F/U ESR 6) Thrombocitopenia Chronic Monitor 7) Rash Unknown Connective tissue disease vs Eczema vs Psoriasis Apply skin emollients for now 8) DM2 Controlled with diet Steroid induced - HELD due to possible infection Hypoglycemia protocol Accuchecks AM 9) b/l lower extremity pain Neuropathy v polymyositis sequelae Allopurinol Gabapentin OxyCodone 10) DVT prophylaxis SCDs for now
[2018-03-21] MEDS: Pantoprazole 20 mg EC Tab PO SCH (08:50)
[2018-03-21] MEDS: Hydrocerin CREAM TOP SCH ×2 (09:00→18:06)
[2018-03-21] MEDS: oxyCODONE 10 mg Immediate Release Tab PO PRN ×2 (10:04→17:51)
--- NOTE | 2018-03-21 11:00 | CP.PCM.CON ---
History of Present Illness - History of Present Illness History of Present Illness: Infectious Disease Consultation Note- Asked to see this patient at the request of family practice team for fever/ colitis in HIV pos patient. HPI- Patient is a 57 year old male with PMH of HIV f/u with , HTN, DM II , Polymyositis on prednisone for this, who is admitted with c/o abdominal pian for past few days. patient describes the pain as mostly in the left lower quadrant , no radiation, no nausea or vomiting and no diarrhea but states this morning he has developed diarrhea and rectal bleed from his hemorrhoids. he states his abd pain better today. He also explains his HAART meds was changed about a month ago by his HIV doctor and he also mentions he has developed itchy rash n his legs past few weeks and is not sure what it is from. pt. states he traveled to [place] a month ago but denies any other travel. ED course: WBC: 16.5 Initial Lactate elevated, repeated WNL Abd CT: Severe colitis affecting Cecum and ascending colon(See full report) IV fluids 1L Zosyn 4.5g IV once PMHx: See HPI Sxhx: L/TKR SHx: Tobacco: 2-3 cig/day Allergies: Bactrim Review of Systems - Review of Systems Review of Systems: ROS_ denies any [place], denies any cough, denies any sob,denies any chest pain, + left lower abdominal pian, no nausea or vomiting, diarrhea with rectal bleed today only as per pt. no chills,no fever itchy rash in b/l legs for few weeks Past Patient History - Past Medical History & Family History Past Medical History?: Yes - Past Social History Smoking Status: Light Smoker < 10 Cigarettes Daily Alcohol: Occasional Drugs: Denies Home Situation {Lives}: With Family - CARDIAC Hx Hypertension: Yes - PULMONARY Hx Respiratory Disorders: No - NEUROLOGICAL Hx Seizures: Yes - HEENT Hx HEENT Problems: No - RENAL Hx Chronic Kidney Disease: No - ENDOCRINE/METABOLIC Hx Endocrine Disorders: Yes Hx Diabetes Mellitus Type 2: Yes - HEMATOLOGICAL/ONCOLOGICAL Hx Blood Disorders: Yes Hx Hepatitis C: Yes Hx Human Immunodeficiency Virus (HIV): Yes - INTEGUMENTARY Hx Dermatological Problems: Yes Hx Eczema: Yes - MUSCULOSKELETAL/RHEUMATOLOGICAL Hx Musculoskeletal Disorders: Yes - GASTROINTESTINAL Hx Gastrointestinal Disorders: Yes Hx Ulcer: Yes Other/Comment: Liver Cirrhosis - GENITOURINARY/GYNECOLOGICAL Hx Genitourinary Disorders: No - PSYCHIATRIC Hx Psychophysiologic Disorder: Yes Hx Substance Use: No - SURGICAL HISTORY Hx Surgeries: Yes Hx Arthroscopy: Yes - ANESTHESIA Hx Anesthesia: Yes Hx Anesthesia Reactions: No Hx Malignant Hyperthermia: No Meds Allergies/Adverse Reactions: Allergies Allergy/AdvReac Type Severity Reaction Status Date / Time sulfamethoxazole Allergy RASH Verified 06/17/17 08:09 [From Bactrim] trimethoprim [From Bactrim] Allergy RASH Verified 06/17/17 08:09 - Medications Medications: Current Medications Atorvastatin Calcium (Lipitor) 20 mg PO DAILY [facility] Gabapentin (Neurontin) 800 mg PO TID [facility] Home Med (Bictegrav/Emtricit/Tenofov Ala [Biktarvy 50-200-25 Mg Tablet]) 1 tab PO DAILY [facility] Piperacillin Sod/Tazobactam (Sod 3.375 gm/ Sodium Chloride) 100 mls @ 100 mls/ hr IVPB Q6 [facility] PRN Reason: Protocol Last Admin: 03/21/18 10:00 Dose: 100 mls/hr Metronidazole (Flagyl 500mg/100ml Ns) 100 mls @ 100 mls/hr IVPB Q6H [facility] Last Admin: 03/21/18 01:58 Dose: Not Given Sodium Chloride (Sodium Chloride 0.9%) 1,000 mls @ 100 mls/hr IV .Q10H [facility] Stop: 03/21/18 18:28 Last Admin: 03/20/18 22:15 Dose: 100 mls/hr Ketorolac Tromethamine (Toradol) 30 mg IVP Q6 PRN PRN Reason: Pain, severe (8-10) Ketorolac Tromethamine (Toradol) 15 mg IVP Q6 PRN PRN Reason: Pain, moderate (4-7) Last Admin: 03/20/18 22:16 Dose: 15 mg Metoprolol Tartrate (Lopressor) 100 mg PO BID [facility] Last Admin: 03/21/18 08:50 Dose: 100 mg Multi-Ingredient Cream (Hydrocerin Cream) 1 applic TOP BID [facility] Last Admin: 03/20/18 22:15 Dose: 1 applic Oxycodone HCl (Oxycodone Immediate Release Tab) 30 mg PO Q6 PRN PRN Reason: Pain, moderate (4-7) Last Admin: 03/21/18 10:04 Dose: 30 mg Pantoprazole Sodium (Protonix Ec Tab) 20 mg PO DAILY [facility] Last Admin: 03/21/18 08:50 Dose: 20 mg Sitagliptin Phosphate (Januvia) 100 mg PO DAILY [facility] Last Admin: 03/21/18 08:50 Dose: 100 mg Valsartan (Diovan) 320 mg PO DAILY [facility] Last Admin: 03/21/18 08:49 Dose: 320 mg Physical Exam - Constitutional Appears: Non-toxic, No Acute Distress - Head Exam Head Exam: ATRAUMATIC - Eye Exam Eye Exam: EOMI, PERRL - ENT Exam ENT Exam: Normal Oropharynx - Neck Exam Neck exam: Positive for: Full Rom - Respiratory Exam Respiratory Exam: Clear to Auscultation Bilateral, NORMAL BREATHING PATTERN - Cardiovascular Exam Cardiovascular Exam: RRR, +S1, +S2 - GI/Abdominal Exam GI & Abdominal Exam: Soft Additional comments: mild distention minimal tenderness in left lower abdomen + BS no guarding, no rebound - Extremities Exam Additional comments: no edema B/L LE b/l le with few small round erythematous lesions, superficial, no discharge - Neurological Exam Neurological exam: Alert, Oriented x3 Results - Vital Signs Recent Vital Signs: Last Vital Signs Temp 98.5 F 03/21/18 08:05 Pulse 75 03/21/18 08:50 Resp 18 03/21/18 08:05 BP 148/74 03/21/18 08:50 Pulse Ox 97 03/21/18 08:05 - Labs Result Diagrams: 03/21/18 04:40 03/21/18 04:40 Labs: Laboratory Results - last 24 hr 03/20/18 03/20/18 03/20/18 11:00 11:11 11:36 WBC 16.5 H RBC 3.42 L Hgb 12.5 Hct 37.5 MCV 109.8 H D MCH 36.6 H MCHC 33.4 RDW 14.2 Plt Count 62 L MPV 10.2 Neut % (Auto) 84.8 H Lymph % (Auto) 9.3 L [place] % (Auto) 5.7 Eos % (Auto) 0.0 Baso % (Auto) 0.2 Neut # (Auto) 14.0 H Lymph # (Auto) 1.5 [place] # (Auto) 0.9 H Eos # (Auto) 0.0 Baso # (Auto) 0.0 Neutrophils % (Manual) 82 H Band Neutrophils % 2 Lymphocytes % (Manual) 9 L Monocytes % (Manual) 6 Metamyelocytes % 1 H Platelet Estimate Decreased L Anisocytosis (manual) Slight Macrocytosis (manual) Slight ESR PT INR APTT pO2 VBG pH VBG pCO2 VBG HCO3 VBG Total CO2 VBG O2 Sat (Calc) VBG Base Excess VBG Potassium Glucose Lactate FiO2 Sodium 135 Potassium 4.9 Chloride 97 L Carbon Dioxide 26 Anion Gap 17 BUN 30 H Creatinine 0.8 Est GFR ( Amer) > 60 Est GFR (Non-Af Amer) > 60 POC Glucose (mg/dL) 124 H Random Glucose 132 H Lactic Acid Calcium 9.4 Total Bilirubin 0.9 AST 53 ALT 65 Alkaline Phosphatase 105 Total Protein 7.6 Albumin 4.0 Globulin 3.5 Albumin/Globulin Ratio 1.1 Lipase 158 Vitamin B12 Procalcitonin Venous Blood Potassium 03/20/18 03/20/18 03/20/18 11:36 15:11 17:52 WBC RBC Hgb Hct MCV MCH MCHC RDW Plt Count MPV Neut % (Auto) Lymph % (Auto) [place] % (Auto) Eos % (Auto) Baso % (Auto) Neut # (Auto) Lymph # (Auto) [place] # (Auto) Eos # (Auto) Baso # (Auto) Neutrophils % (Manual) Band Neutrophils % Lymphocytes % (Manual) Monocytes % (Manual) Metamyelocytes % Platelet Estimate Anisocytosis (manual) Macrocytosis (manual) ESR PT INR APTT pO2 21 L VBG pH 7.38 VBG pCO2 49 VBG HCO3 25.5 VBG Total CO2 30.5 H VBG O2 Sat (Calc) 31.0 L VBG Base Excess 3.0 H VBG Potassium 4.6 Glucose 136 H Lactate 1.9 FiO2 21.0 Sodium 132.0 Potassium Chloride 98.0 Carbon Dioxide Anion Gap BUN Creatinine Est GFR ( Amer) Est GFR (Non-Af Amer) POC Glucose (mg/dL) Random Glucose Lactic Acid 2.3 H Calcium Total Bilirubin AST ALT Alkaline Phosphatase Total Protein Albumin Globulin Albumin/Globulin Ratio Lipase Vitamin B12 Procalcitonin < 0.05 L Venous Blood Potassium 4.6 03/20/18 03/20/18 03/20/18 21:05 21:05 21:19 WBC RBC Hgb Hct MCV MCH MCHC RDW Plt Count MPV Neut % (Auto) Lymph % (Auto) [place] % (Auto) Eos % (Auto) Baso % (Auto) Neut # (Auto) Lymph # (Auto) [place] # (Auto) Eos # (Auto) Baso # (Auto) Neutrophils % (Manual) Band Neutrophils % Lymphocytes % (Manual) Monocytes % (Manual) Metamyelocytes % Platelet Estimate Anisocytosis (manual) Macrocytosis (manual) ESR 56 H PT INR APTT pO2 VBG pH VBG pCO2 VBG HCO3 VBG Total CO2 VBG O2 Sat (Calc) VBG Base Excess VBG Potassium Glucose Lactate FiO2 Sodium Potassium Chloride Carbon Dioxide Anion Gap BUN Creatinine Est GFR ( Amer) Est GFR (Non-Af Amer) POC Glucose (mg/dL) 163 H Random Glucose Lactic Acid Calcium Total Bilirubin AST ALT Alkaline Phosphatase Total Protein Albumin Globulin Albumin/Globulin Ratio Lipase Vitamin B12 724 Procalcitonin Venous Blood Potassium 03/21/18 03/21/18 03/21/18 04:40 04:40 04:40 WBC 7.1 D RBC 2.84 L Hgb 10.5 L D Hct 31.1 L MCV 109.5 H MCH 37.1 H MCHC 33.9 RDW 14.1 Plt Count 45 L MPV 9.5 Neut % (Auto) 76.0 H Lymph % (Auto) 16.7 L [place] % (Auto) 6.7 Eos % (Auto) 0.4 Baso % (Auto) 0.2 Neut # (Auto) 5.4 Lymph # (Auto) 1.2 [place] # (Auto) 0.5 Eos # (Auto) 0.0 Baso # (Auto) 0.0 Neutrophils % (Manual) Band Neutrophils % Lymphocytes % (Manual) Monocytes % (Manual) Metamyelocytes % Platelet Estimate Anisocytosis (manual) Macrocytosis (manual) ESR PT 12.3 INR 1.1 APTT 28.1 pO2 VBG pH VBG pCO2 VBG HCO3 VBG Total CO2 VBG O2 Sat (Calc) VBG Base Excess VBG Potassium Glucose Lactate FiO2 Sodium 139 Potassium 4.4 Chloride 103 Carbon Dioxide 27 Anion Gap 13 BUN 26 H Creatinine 0.9 Est GFR ( Amer) > 60 Est GFR (Non-Af Amer) > 60 POC Glucose (mg/dL) Random Glucose 115 H Lactic Acid Calcium 8.5 Total Bilirubin 0.6 AST 38 ALT 58 Alkaline Phosphatase 82 Total Protein 6.4 Albumin 3.2 L Globulin 3.2 Albumin/Globulin Ratio 1.0 Lipase Vitamin B12 Procalcitonin Venous Blood Potassium 03/21/18 05:29 WBC RBC Hgb Hct MCV MCH MCHC RDW Plt Count MPV Neut % (Auto) Lymph % (Auto) [place] % (Auto) Eos % (Auto) Baso % (Auto) Neut # (Auto) Lymph # (Auto) [place] # (Auto) Eos # (Auto) Baso # (Auto) Neutrophils % (Manual) Band Neutrophils % Lymphocytes % (Manual) Monocytes % (Manual) Metamyelocytes % Platelet Estimate Anisocytosis (manual) Macrocytosis (manual) ESR PT INR APTT pO2 VBG pH VBG pCO2 VBG HCO3 VBG Total CO2 VBG O2 Sat (Calc) VBG Base Excess VBG Potassium Glucose Lactate FiO2 Sodium Potassium Chloride Carbon Dioxide Anion Gap BUN Creatinine Est GFR ( Amer) Est GFR (Non-Af Amer) POC Glucose (mg/dL) 112 H Random Glucose Lactic Acid Calcium Total Bilirubin AST ALT Alkaline Phosphatase Total Protein Albumin Globulin Albumin/Globulin Ratio Lipase Vitamin B12 Procalcitonin Venous Blood Potassium Laboratory Results - last 72 hr 03/20/18 03/20/18 03/20/18 11:00 11:11 11:36 WBC 16.5 H RBC 3.42 L Hgb 12.5 Hct 37.5 MCV 109.8 H D MCH 36.6 H MCHC 33.4 RDW 14.2 Plt Count 62 L MPV 10.2 Neut % (Auto) 84.8 H Lymph % (Auto) 9.3 L [place] % (Auto) 5.7 Eos % (Auto) 0.0 Baso % (Auto) 0.2 Neut # (Auto) 14.0 H Lymph # (Auto) 1.5 [place] # (Auto) 0.9 H Eos # (Auto) 0.0 Baso # (Auto) 0.0 Neutrophils % (Manual) 82 H Band Neutrophils % 2 Lymphocytes % (Manual) 9 L Monocytes % (Manual) 6 Metamyelocytes % 1 H Platelet Estimate Decreased L Anisocytosis (manual) Slight Macrocytosis (manual) Slight ESR PT INR APTT pO2 VBG pH VBG pCO2 VBG HCO3 VBG Total CO2 VBG O2 Sat (Calc) VBG Base Excess VBG Potassium Glucose Lactate FiO2 Sodium 135 Potassium 4.9 Chloride 97 L Carbon Dioxide 26 Anion Gap 17 BUN 30 H Creatinine 0.8 Est GFR ( Amer) > 60 Est GFR (Non-Af Amer) > 60 POC Glucose (mg/dL) 124 H Random Glucose 132 H Lactic Acid Calcium 9.4 Total Bilirubin 0.9 AST 53 ALT 65 Alkaline Phosphatase 105 Total Protein 7.6 Albumin 4.0 Globulin 3.5 Albumin/Globulin Ratio 1.1 Lipase 158 Vitamin B12 Procalcitonin Venous Blood Potassium 03/20/18 03/20/18 03/20/18 11:36 15:11 17:52 WBC RBC Hgb Hct MCV MCH MCHC RDW Plt Count MPV Neut % (Auto) Lymph % (Auto) [place] % (Auto) Eos % (Auto) Baso % (Auto) Neut # (Auto) Lymph # (Auto) [place] # (Auto) Eos # (Auto) Baso # (Auto) Neutrophils % (Manual) Band Neutrophils % Lymphocytes % (Manual) Monocytes % (Manual) Metamyelocytes % Platelet Estimate Anisocytosis (manual) Macrocytosis (manual) ESR PT INR APTT pO2 21 L VBG pH 7.38 VBG pCO2 49 VBG HCO3 25.5 VBG Total CO2 30.5 H VBG O2 Sat (Calc) 31.0 L VBG Base Excess 3.0 H VBG Potassium 4.6 Glucose 136 H Lactate 1.9 FiO2 21.0 Sodium 132.0 Potassium Chloride 98.0 Carbon Dioxide Anion Gap BUN Creatinine Est GFR ( Amer) Est GFR (Non-Af Amer) POC Glucose (mg/dL) Random Glucose Lactic Acid 2.3 H Calcium Total Bilirubin AST ALT Alkaline Phosphatase Total Protein Albumin Globulin Albumin/Globulin Ratio Lipase Vitamin B12 Procalcitonin < 0.05 L Venous Blood Potassium 4.6 03/20/18 03/20/18 03/20/18 21:05 21:05 21:19 WBC RBC Hgb Hct MCV MCH MCHC RDW Plt Count MPV Neut % (Auto) Lymph % (Auto) [place] % (Auto) Eos % (Auto) Baso % (Auto) Neut # (Auto) Lymph # (Auto) [place] # (Auto) Eos # (Auto) Baso # (Auto) Neutrophils % (Manual) Band Neutrophils % Lymphocytes % (Manual) Monocytes % (Manual) Metamyelocytes % Platelet Estimate Anisocytosis (manual) Macrocytosis (manual) ESR 56 H PT INR APTT pO2 VBG pH VBG pCO2 VBG HCO3 VBG Total CO2 VBG O2 Sat (Calc) VBG Base Excess VBG Potassium Glucose Lactate FiO2 Sodium Potassium Chloride Carbon Dioxide Anion Gap BUN Creatinine Est GFR ( Amer) Est GFR (Non-Af Amer) POC Glucose (mg/dL) 163 H Random Glucose Lactic Acid Calcium Total Bilirubin AST ALT Alkaline Phosphatase Total Protein Albumin Globulin Albumin/Globulin Ratio Lipase Vitamin B12 724 Procalcitonin Venous Blood Potassium 03/21/18 03/21/18 03/21/18 04:40 04:40 04:40 WBC 7.1 D RBC 2.84 L Hgb 10.5 L D Hct 31.1 L MCV 109.5 H MCH 37.1 H MCHC 33.9 RDW 14.1 Plt Count 45 L MPV 9.5 Neut % (Auto) 76.0 H Lymph % (Auto) 16.7 L [place] % (Auto) 6.7 Eos % (Auto) 0.4 Baso % (Auto) 0.2 Neut # (Auto) 5.4 Lymph # (Auto) 1.2 [place] # (Auto) 0.5 Eos # (Auto) 0.0 Baso # (Auto) 0.0 Neutrophils % (Manual) Band Neutrophils % Lymphocytes % (Manual) Monocytes % (Manual) Metamyelocytes % Platelet Estimate Anisocytosis (manual) Macrocytosis (manual) ESR PT 12.3 INR 1.1 APTT 28.1 pO2 VBG pH VBG pCO2 VBG HCO3 VBG Total CO2 VBG O2 Sat (Calc) VBG Base Excess VBG Potassium Glucose Lactate FiO2 Sodium 139 Potassium 4.4 Chloride 103 Carbon Dioxide 27 Anion Gap 13 BUN 26 H Creatinine 0.9 Est GFR ( Amer) > 60 Est GFR (Non-Af Amer) > 60 POC Glucose (mg/dL) Random Glucose 115 H Lactic Acid Calcium 8.5 Total Bilirubin 0.6 AST 38 ALT 58 Alkaline Phosphatase 82 Total Protein 6.4 Albumin 3.2 L Globulin 3.2 Albumin/Globulin Ratio 1.0 Lipase Vitamin B12 Procalcitonin Venous Blood Potassium 03/21/18 03/21/18 05:29 11:10 WBC RBC Hgb Hct MCV MCH MCHC RDW Plt Count MPV Neut % (Auto) Lymph % (Auto) [place] % (Auto) Eos % (Auto) Baso % (Auto) Neut # (Auto) Lymph # (Auto) [place] # (Auto) Eos # (Auto) Baso # (Auto) Neutrophils % (Manual) Band Neutrophils % Lymphocytes % (Manual) Monocytes % (Manual) Metamyelocytes % Platelet Estimate Anisocytosis (manual) Macrocytosis (manual) ESR PT INR APTT pO2 VBG pH VBG pCO2 VBG HCO3 VBG Total CO2 VBG O2 Sat (Calc) VBG Base Excess VBG Potassium Glucose Lactate FiO2 Sodium Potassium Chloride Carbon Dioxide Anion Gap BUN Creatinine Est GFR ( Amer) Est GFR (Non-Af Amer) POC Glucose (mg/dL) 112 H 103 Random Glucose Lactic Acid Calcium Total Bilirubin AST ALT Alkaline Phosphatase Total Protein Albumin Globulin Albumin/Globulin Ratio Lipase Vitamin B12 Procalcitonin Venous Blood Potassium Accession No. : [id number] Patient Name / ID : MAGGIE ARIAS / [id number] Exam Date : 03/20/2018 14:07:38 ( Approved ) Study Comment : Sex / Age : M / 57Y Creator : Seth Malloy MD Dictator : Seth Malloy MD Quality Assurance Monitor Final : Drug Clerk : Seth Malloy MD Approver2 : Report Date : 03/20/2018 14:44:21 My Comment : PROCEDURE: CT Abdomen and Pelvis with contrast HISTORY: Abdominal pain COMPARISON: 12/23/2017 CT abdomen and pelvis. 03/01/2018 abdominal ultrasound TECHNIQUE: Contrast dose: 99 cc Omnipaque 300 Radiation dose: Total exam DLP = 524.40 mGy-cm. This CT exam was performed using one or more of the following dose reduction techniques: Automated exposure control, adjustment of the mA and/or kV according to patient size, and/or use of iterative reconstruction technique. FINDINGS: LOWER THORAX: Unremarkable. LIVER: Stable cirrhotic appearing liver. GALLBLADDER AND BILE DUCTS: Unremarkable. PANCREAS: Unremarkable. No gross lesion or ductal dilatation. SPLEEN: Stable splenomegaly ADRENALS: Unremarkable. No mass. KIDNEYS AND URETERS: Multiple small and bilateral nonobstructing renal calculi. Ureters are normal in caliber and course. VASCULATURE: Unremarkable. No aortic aneurysm. BOWEL: Severe inflammatory changes affecting the ascending colon over a distance of approximately 12 cm. Mucosal/mural thickening identified. Pericolonic inflammatory change noted. No evidence of perforation, loculated air or free air. APPENDIX: The appendix is spared of the adjacent inflammatory changes affecting the cecum and ascending colon PERITONEUM: Unremarkable. No free fluid. No free air. LYMPH NODES: Unremarkable. No enlarged lymph nodes. BLADDER: Unremarkable. REPRODUCTIVE: Unremarkable. BONES: OTHER FINDINGS: None. IMPRESSION: Severe/acute segmental colitis affecting cecum and adjacent ascending colon with sparing of the appendix. The terminal ileum is also unaffected Assessment & Plan (1) Colitis Status: Acute (2) HIV disease Status: Acute (3) Leukocytosis Status: Acute - Assessment and Plan (Free Text) Assessment: A/P- 57 year old male with HIV ( well controlled last [id number] and VL - undetectable based on results from 02/2018), DM II, polymyositis, admitted with left lower abd pain found to have severe colitis on abd Ct report along with leukocytosis. afebrile leukocytosis has resolved today. cx pending plan- await blood and urine cx results. check stool cx. check stool c.diff . check ova and parasite. rectal bleed to be addressed by GI. continue with IV zosyn and flagyl for the colitis for now. LE rash could be secondary to one of his home meds, advised family practice team to check all his home meds and clarify. as per family practice team pt. on BIctarvy for his HAART . this can cause rash so perhaps hold this and see what his HIV doc. recommends. All above d/w patient and he verbalizes full understanding of all above. all above also d/w family practice team. Thank you for allowing me to take part in the care of this patient.
[2018-03-21] MEDS: Sodium Chloride 0.9% 1,000 ML IV SCH (14:30)
[2018-03-21 20:35] LABS: SQUAMOUS EPITHIAL 1 /hpf (0-5); URINE BILIRUBIN NEGATIVE (NEGATIVE); URINE BLOOD NEGATIVE (NEGATIVE); URINE CLARITY CLEAR (Clear); URINE COLOR YELLOW (YELLOW); URINE GLUCOSE (UA) NEG (Normal); URINE LEUKOCYTE ESTERASE NEG Leu/uL (Negative); URINE PROTEIN 30 mg/dL (NEGATIVE); URINE UROBILINOGEN 0.2-1.0 mg/dL (0.2-1.0)
[2018-03-22] MEDS: oxyCODONE 10 mg Immediate Release Tab PO PRN ×4 (00:05→21:23)
[2018-03-22] MEDS: metroNIDAZOLE 500mg/100ml NS 100 ML IVPB SCH ×4 (00:06→17:25)
[2018-03-22] MEDS: Piperacillin/Tazobact 3.375 GM in Sodium Chloride 0.9% 100 ML IVPB SCH ×4 (03:27→21:26)
--- NOTE | 2018-03-22 07:33 | CP.PCM.PN ---
Subjective - Date & Time of Evaluation Date of Evaluation: 03/22/18 Time of Evaluation: 07:30 - Subjective Subjective: Pt seen and examined at bedside. Upon entering room, was seen sitting up on side of bed. He denies any overnight problems or complications. Pt states his abdominal pain is greatly improved as well as his b/l lower extremity pain. He also states minimal, intermittent rectal bleeding from known hemorrhoid of ~1 year. Otherwise, he denies fevers/chills, n/v/d, chest pain, SOB, dyspnea, cough, calf tenderness, or pedal edema. Objective - Vital Signs/Intake and Output Vital Signs (last 24 hours): Temp Pulse Resp BP Pulse Ox 98.3 F 69 18 117/66 99 03/22/18 05:07 03/22/18 05:07 03/22/18 05:07 03/22/18 05:07 03/22/18 05:07 Intake and Output: 03/22/18 03/22/18 06:59 18:59 Intake Total 1560 Output Total 1 Balance 1559 - Medications Medications: Current Medications Atorvastatin Calcium (Lipitor) 20 mg PO DAILY [facility] Gabapentin (Neurontin) 800 mg PO TID [facility] Last Admin: 03/21/18 17:49 Dose: 800 mg Home Med (Bictegrav/Emtricit/Tenofov Ala [Biktarvy 50-200-25 Mg Tablet]) 1 tab PO DAILY [facility] Piperacillin Sod/Tazobactam (Sod 3.375 gm/ Sodium Chloride) 100 mls @ 100 mls/ hr IVPB Q6 [facility] PRN Reason: Protocol Last Admin: 03/22/18 03:27 Dose: 100 mls/hr Metronidazole (Flagyl 500mg/100ml Ns) 100 mls @ 100 mls/hr IVPB Q6H [facility] Last Admin: 03/22/18 06:05 Dose: 100 mls/hr Ketorolac Tromethamine (Toradol) 30 mg IVP Q6 PRN PRN Reason: Pain, severe (8-10) Ketorolac Tromethamine (Toradol) 15 mg IVP Q6 PRN PRN Reason: Pain, moderate (4-7) Last Admin: 03/20/18 22:16 Dose: 15 mg Metoprolol Tartrate (Lopressor) 100 mg PO BID [facility] Last Admin: 03/21/18 18:08 Dose: 100 mg Multi-Ingredient Cream (Hydrocerin Cream) 1 applic TOP BID [facility] Last Admin: 03/21/18 18:06 Dose: 1 applic Oxycodone HCl (Oxycodone Immediate Release Tab) 30 mg PO Q6 PRN PRN Reason: Pain, moderate (4-7) Last Admin: 03/22/18 00:05 Dose: 30 mg Pantoprazole Sodium (Protonix Ec Tab) 20 mg PO DAILY [facility] Last Admin: 03/21/18 08:50 Dose: 20 mg Sitagliptin Phosphate (Januvia) 100 mg PO DAILY [facility] Last Admin: 03/21/18 08:50 Dose: 100 mg Valsartan (Diovan) 320 mg PO DAILY [facility] Last Admin: 03/21/18 08:49 Dose: 320 mg - Labs Labs: 03/21/18 04:40 03/21/18 04:40 PT 12.3 Seconds (9.8-13.1) 03/21/18 04:40 INR 1.1 (0.9-1.2) 03/21/18 04:40 APTT 28.1 Seconds (25.6-37.1) 03/21/18 04:40 - Additional Findings Additional findings: - Constitutional Appears: Non-toxic, No Acute Distress - Eye Exam Eye Exam: EOMI, PERRL - ENT Exam ENT Exam: Mucous Membranes Moist - Respiratory Exam Respiratory Exam: Clear to Auscultation Bilateral, NORMAL BREATHING PATTERN. absent: Decreased Breath Sounds, Rales, Rhonchi, Wheezes - Cardiovascular Exam Cardiovascular Exam: REGULAR RHYTHM, +S1, +S2. absent: Gallop - GI/Abdominal Exam GI & Abdominal Exam: Soft, Normal Bowel Sounds. absent: Rebound, Rigid, Tenderness - Extremities Exam Extremities exam: Positive for: normal capillary refill. Negative for: calf tenderness, pedal edema Additional comments: LE Strength 4/5 B/L - Skin Skin Exam: Rash (Maculopapular scaly, nonconfluent, dry rash in both legs and arm), Warm Assessment and Plan - Assessment and Plan (Free Text) Assessment: 57 y/o M with PMhx of HIV, DM, HTN, and Hep C admitted for abdominal pain discovered to be severe colitis 1) Colitis Abdominal pain is presently controlled CT A/P (03/20): acute/severe segmental (Cecum and ascending colon) colitis Afebrile. Leukocytosis Improved Tolerated liquid diet well; Diet Consistent Carb, Soft, [place] and 1 Glucerna Zosyn and Flagyl IV, as per ID f/u ID recommendations f/u GI recommendations f/u FOBT f/u Stool Cx f/u C diff f/u Ova and Parasite 2) Thrombocitopenia Chronic f/u CBC w Peripheral Smear f/u Manual Platelet 3) b/l lower extremity Rash Unknown etiology; As per ID, consider changing HIV med due to b/l lower extremity skin rash Apply skin emollients for now 4) Hx of polymyositis c/w Home Med: Prednisone 5mg PO Q8H 5) Cough VSS; Subjective fever before admission Placed new CXR order during admission f/u CXR 6) HIV without AIDS CD4 573 with Undetectable VL on 02/20/18 ID onboard; c/w Home meds, though, consider changing med due to b/l lower extremity skin rash 7) Liver cirrhosis Poss due to Hx of Hep C; Liver enzimes and albumin WNL 8) Hemorrhoids Known h/o internal/external for nearly one year Managed w OTC medications; Will be following up w GI as outpatient, as per eCW 9) DM2 Controlled with diet; likely Steroid induced (HELD due to possible infection) f/u Accuchecks AM 10) b/l lower extremity pain Neuropathy v polymyositis sequelae; resolved w placement of home pain medications 11) Prophylaxis SCDs for now; Await evaluation for possible GI bleed Incentive Spirometry for preventative pulmonary measures
[2018-03-22] MEDS: Pantoprazole 20 mg EC Tab PO SCH (08:43)
[2018-03-22 09:28] LABS: ALB/GLOB RATIO 1.2 (1.0-2.1); ALT/SGPT 60 U/L (21-72); AST/SGOT 48 U/L (17-59); BLOOD UREA NITROGEN 14 mg/dl (9-20); CALCIUM 9.7 mg/dL (8.4-10.2); GFR AFRICAN-AMERICAN > 60; GFR NON-AFRICAN AMERICAN > 60
[2018-03-22 10:47] LABS: HEMOGLOBIN 11.8 g/dL (12.0-18.0); MEAN CELL VOLUME 108.9 fl (80.0-94.0); MEAN CORPUSCULAR HEMOGLOBIN 36.3 pg (27.0-31.0); MEAN CORPUSCULAR HGB CONC 33.3 g/dL (33.0-37.0); RBC 3.26 Mil/uL (4.40-5.90); RED CELL DISTRIBUTION WIDTH 13.7 % (11.5-14.5); WHITE BLOOD COUNT 11.6 K/uL (4.8-10.8)
[2018-03-22 10:48] LABS: BASO % 0.4 % (0.0-2.0); EOS % 0.5 % (0.0-4.0); LYMPH % 19.8 % (20.0-40.0); MEAN PLATELET VOLUME 10.3 fl (7.2-11.7); MONO % 9.5 % (0.0-10.0); NEUT # 8.1 K/uL (1.8-7.0); NEUT % 69.8 % (50.0-75.0)
[2018-03-22 10:49] LABS: EOS # 0.1 K/uL (0.0-0.7); LYMPH # 2.3 K/uL (1.0-4.3); MONO # 1.1 K/uL (0.0-0.8)
[2018-03-22] MEDS: Hydrocerin CREAM TOP SCH ×2 (12:04→17:25)
--- NOTE | 2018-03-22 12:26 | RAD ---
HISTORY: admitted w c/o cough and subjective fever COMPARISON: Chest radiograph dated 08/14/2017. TECHNIQUE: Chest PA and lateral FINDINGS: LUNGS: Biapical pleural-parenchymal scarring. No active pulmonary disease. PLEURA: No significant pleural effusion identified. No pneumothorax apparent. CARDIOVASCULAR: Atherosclerotic aortic calcifications. Cardiomediastinal silhouette unchanged. OSSEOUS STRUCTURES: Unchanged. VISUALIZED UPPER ABDOMEN: Normal. OTHER FINDINGS: None. IMPRESSION: No active disease.
--- NOTE | 2018-03-22 18:19 | CP.PCM.PN ---
Subjective - Date & Time of Evaluation Date of Evaluation: 03/22/18 Time of Evaluation: 18:03 - Subjective Subjective: Feeling well. Just mild abdominal discomfort. Objective - Vital Signs/Intake and Output Vital Signs (last 24 hours): Temp Pulse Resp BP Pulse Ox 98.3 F 88 20 160/74 H 99 03/22/18 15:30 03/22/18 17:24 03/22/18 15:30 03/22/18 17:24 03/22/18 15:30 Intake and Output: 03/22/18 03/22/18 06:59 18:59 Intake Total 1560 Output Total 1 Balance 1559 - Medications Medications: Current Medications Atorvastatin Calcium (Lipitor) 20 mg PO DAILY [facility] Last Admin: 03/22/18 08:43 Dose: 20 mg Gabapentin (Neurontin) 800 mg PO TID [facility] Last Admin: 03/22/18 17:24 Dose: 800 mg Home Med (Bictegrav/Emtricit/Tenofov Ala [Biktarvy 50-200-25 Mg Tablet]) 1 tab PO DAILY [facility] Home Med (Prednisone [Prednisone]) 1 tab PO Q8 [facility] Piperacillin Sod/Tazobactam (Sod 3.375 gm/ Sodium Chloride) 100 mls @ 100 mls/ hr IVPB Q6 [facility] PRN Reason: Protocol Last Admin: 03/22/18 17:25 Dose: 100 mls/hr Metronidazole (Flagyl 500mg/100ml Ns) 100 mls @ 100 mls/hr IVPB Q8H [facility] Last Admin: 03/22/18 17:25 Dose: 100 mls/hr Ketorolac Tromethamine (Toradol) 30 mg IVP Q6 PRN PRN Reason: Pain, severe (8-10) Ketorolac Tromethamine (Toradol) 15 mg IVP Q6 PRN PRN Reason: Pain, moderate (4-7) Last Admin: 03/20/18 22:16 Dose: 15 mg Metoprolol Tartrate (Lopressor) 100 mg PO BID [facility] Last Admin: 03/22/18 17:24 Dose: 100 mg Multi-Ingredient Cream (Hydrocerin Cream) 1 applic TOP BID [facility] Last Admin: 03/22/18 17:25 Dose: Not Given Oxycodone HCl (Oxycodone Immediate Release Tab) 30 mg PO Q6 PRN PRN Reason: Pain, moderate (4-7) Last Admin: 03/22/18 14:35 Dose: 30 mg Pantoprazole Sodium (Protonix Ec Tab) 20 mg PO DAILY [facility] Last Admin: 03/22/18 08:43 Dose: 20 mg Sitagliptin Phosphate (Januvia) 100 mg PO DAILY [facility] Last Admin: 03/22/18 08:42 Dose: 100 mg Valsartan (Diovan) 320 mg PO DAILY [facility] Last Admin: 03/22/18 08:43 Dose: 320 mg - Labs Labs: 03/22/18 08:30 03/22/18 08:30 PT 12.3 Seconds (9.8-13.1) 03/21/18 04:40 INR 1.1 (0.9-1.2) 03/21/18 04:40 APTT 28.1 Seconds (25.6-37.1) 03/21/18 04:40 - Head Exam Head Exam: ATRAUMATIC - ENT Exam ENT Exam: Mucous Membranes Moist - Neck Exam Neck Exam: Full ROM - Respiratory Exam Respiratory Exam: NORMAL BREATHING PATTERN - Cardiovascular Exam Cardiovascular Exam: REGULAR RHYTHM - GI/Abdominal Exam GI & Abdominal Exam: Soft. absent: Tenderness Assessment and Plan (1) Colitis presumed infectious Assessment & Plan: Clinically better. Tolerating regular diet. Status: Acute
[2018-03-22 23:28] LABS: SQUAMOUS EPITHIAL 2 /hpf (0-5); URINE BACTERIA RARE (<OCC); URINE BILIRUBIN NEGATIVE (NEGATIVE); URINE BLOOD SMALL (NEGATIVE); URINE CLARITY SLIGHTY-CLOUDY (Clear); URINE COLOR AMBER (YELLOW); URINE GLUCOSE (UA) NEG (Normal); URINE LEUKOCYTE ESTERASE SMALL Leu/uL (Negative); URINE PROTEIN 30 mg/dL (NEGATIVE); URINE UROBILINOGEN 0.2-1.0 mg/dL (0.2-1.0)
[2018-03-22 23:37] LABS: BARBITURATES, UR NEGATIVE (NEGATIVE); BENZODIAZEPINES, UR NEGATIVE (NEGATIVE); PHENCYCLIDINE, UR NEGATIVE (NEGATIVE)
[2018-03-22 23:45] LABS: OPIATES, UR POSITIVE (NEGATIVE)
[2018-03-23] MEDS: metroNIDAZOLE 500mg/100ml NS 100 ML IVPB SCH ×3 (00:28→16:35)
[2018-03-23] MEDS: Piperacillin/Tazobact 3.375 GM in Sodium Chloride 0.9% 100 ML IVPB SCH ×4 (03:28→22:32)
--- NOTE | 2018-03-23 07:05 | CP.PCM.PN ---
Subjective - Date & Time of Evaluation Date of Evaluation: 03/23/18 Time of Evaluation: 07:05 - Subjective Subjective: 57 y/o M evaluated and examined by bedside. Pt had 1 episode of vomiting last night after eating fish. Pt afebrile, able to ambulate, denies abdominal pain, urinary complaints. -Pt reports eating a tuna fish and pieces of fruits last night after single vomiting episode. Objective - Vital Signs/Intake and Output Vital Signs (last 24 hours): Temp Pulse Resp BP Pulse Ox 98.1 F 85 18 119/74 100 03/23/18 05:13 03/23/18 05:13 03/23/18 05:13 03/23/18 05:13 03/23/18 05:13 - Medications Medications: Current Medications Atorvastatin Calcium (Lipitor) 20 mg PO DAILY [facility] Last Admin: 03/22/18 08:43 Dose: 20 mg Gabapentin (Neurontin) 800 mg PO TID [facility] Last Admin: 03/22/18 17:24 Dose: 800 mg Home Med (Bictegrav/Emtricit/Tenofov Ala [Biktarvy 50-200-25 Mg Tablet]) 1 tab PO DAILY [facility] Home Med (Prednisone [Prednisone]) 1 tab PO Q8 [facility] Piperacillin Sod/Tazobactam (Sod 3.375 gm/ Sodium Chloride) 100 mls @ 100 mls/ hr IVPB Q6 [facility] PRN Reason: Protocol Last Admin: 03/23/18 03:28 Dose: 100 mls/hr Metronidazole (Flagyl 500mg/100ml Ns) 100 mls @ 100 mls/hr IVPB Q8H [facility] Last Admin: 03/23/18 00:28 Dose: 100 mls/hr Ketorolac Tromethamine (Toradol) 30 mg IVP Q6 PRN PRN Reason: Pain, severe (8-10) Last Admin: 03/23/18 04:33 Dose: 30 mg Ketorolac Tromethamine (Toradol) 15 mg IVP Q6 PRN PRN Reason: Pain, moderate (4-7) Last Admin: 03/20/18 22:16 Dose: 15 mg Metoprolol Tartrate (Lopressor) 100 mg PO BID [facility] Last Admin: 03/22/18 17:24 Dose: 100 mg Multi-Ingredient Cream (Hydrocerin Cream) 1 applic TOP BID [facility] Last Admin: 03/22/18 17:25 Dose: Not Given Oxycodone HCl (Oxycodone Immediate Release Tab) 30 mg PO Q6 PRN PRN Reason: Pain, moderate (4-7) Last Admin: 03/22/18 21:23 Dose: 30 mg Pantoprazole Sodium (Protonix Ec Tab) 20 mg PO DAILY [facility] Last Admin: 03/22/18 08:43 Dose: 20 mg Sitagliptin Phosphate (Januvia) 100 mg PO DAILY [facility] Last Admin: 03/22/18 08:42 Dose: 100 mg Valsartan (Diovan) 320 mg PO DAILY [facility] Last Admin: 03/22/18 08:43 Dose: 320 mg - Labs Labs: 03/22/18 08:30 03/22/18 08:30 PT 12.3 Seconds (9.8-13.1) 03/21/18 04:40 INR 1.1 (0.9-1.2) 03/21/18 04:40 APTT 28.1 Seconds (25.6-37.1) 03/21/18 04:40 - Constitutional Appears: No Acute Distress - Head Exam Head Exam: ATRAUMATIC - Eye Exam Eye Exam: EOMI - ENT Exam ENT Exam: Mucous Membranes Moist - Neck Exam Neck Exam: Full ROM. absent: Normal Inspection - Respiratory Exam Respiratory Exam: Clear to Ausculation Bilateral, NORMAL BREATHING PATTERN - Cardiovascular Exam Cardiovascular Exam: +S1, +S2 - GI/Abdominal Exam GI & Abdominal Exam: Distended, Soft, Normal Bowel Sounds. absent: Tenderness - Extremities Exam Extremities Exam: Full ROM. absent: Calf Tenderness, Pedal Edema - Neurological Exam Neurological Exam: Alert, Awake, Normal Gait, Oriented x3 Assessment and Plan - Assessment and Plan (Free Text) Assessment: 57 y/o M with PMhx of HIV, DM, HTN, and Hep C admitted for abdominal pain discovered to be severe colitis Severe Colitis -Afebrile. Leukocytosis Improved -S/P 1 episode of emesis yesterday. Received PO Zofran. -NPO, will adavance to soft regular diet at lunch. -Currently on Zosyn and Flagyl IV, as per ID -ID and GI recommendations awaiting -Blood Cx on 03/20 w/ NO growth in 48hrs. UCx w/ NO growth-final. -Toradol PRN for pain management, Pantoprazole 2mg daily. -F/U PO tolerance. -f/u FOBT, Stool Cx, C diff, Ova and Parasite Thrombocytopenia -Chronic -Plt count 63-on baseline. B/L lower extremity Rash -Non-pruritic and painless -Unknown etiology; As per ID, consider changing HIV med due to b/l lower extremity skin rash -Apply skin emollients for now Hx of polymyositis -c/w Home Med: Prednisone 5mg PO Q8H Cough -Resolved -VSS; Subjective fever before admission -CXR on 03/22-NO active disease HIV without AIDS -CD4 573 with Undetectable VL on 02/20/18 -ID onboard; c/w Home meds, though, consider changing med due to b/l lower extremity skin rash Liver cirrhosis, unspecified -Poss due to Hx of Hep C; -Liver enzimes and albumin WNL on 03/22 -No previous Hx of paracentesis. Diabetes Mellitus Type 2-Diet controlled. -f/u Accuchecks AM -C/w home medications: gabapentin 800mg TID, Januvia 100mg daily. -Gabapentin 800mg TID PO. -Lipitor 20mg daily. HTN, controlled -Valsartan 320 mg PO daily -Lopressor 100mg daily. Prophylaxis SCDs for now; Await evaluation for possible GI bleed Incentive Spirometry for preventative pulmonary measures
[2018-03-23] MEDS ORDERED: Dextrose 5%/0.45% NS 1,000 ML IV SCH (07:15)
[2018-03-23 08:59] LABS: HEMOGLOBIN 12.2 g/dL (12.0-18.0); MEAN CELL VOLUME 108.5 fl (80.0-94.0); MEAN CORPUSCULAR HEMOGLOBIN 37.2 pg (27.0-31.0); MEAN CORPUSCULAR HGB CONC 34.3 g/dL (33.0-37.0); RBC 3.27 Mil/uL (4.40-5.90); RED CELL DISTRIBUTION WIDTH 13.9 % (11.5-14.5); WHITE BLOOD COUNT 6.9 K/uL (4.8-10.8)
[2018-03-23 09:09] LABS: BLOOD UREA NITROGEN 16 mg/dl (9-20); CALCIUM 9.7 mg/dL (8.4-10.2); GFR AFRICAN-AMERICAN > 60; GFR NON-AFRICAN AMERICAN > 60
[2018-03-23] MEDS: Pantoprazole 20 mg EC Tab PO SCH (09:47)
[2018-03-23] MEDS: oxyCODONE 10 mg Immediate Release Tab PO PRN ×2 (09:49→18:05)
--- NOTE | 2018-03-23 11:18 | PQF GENQUE ---
Dr. Gibson, 2 queries: 1. The attending physician is required to clarify conflicting documentation in the medical record. The following documentation is noted in the medical record: Diagnosis 1: HIV without AIDS Documented by: Attending Location: H and P and follow up progress notes Diagnosis 2: HIV Disease; Acute: Consult then ICD-10 code: B20 added to the Problem List on 03/21/18 Documented by: ID hearing consultant Location: Consult and Problem List in the EMR Please clarify the appropriate diagnosis for this patient. 2. Please update the Problem List in the EMR: accordingly 03/23 Draft Resident progress note;1) Colitis :Abdominal pain is presently controlled ;CT A/P (03/20): acute/severe segmental (Cecum and ascending colon) colitis Afebrile. Leukocytosis Improved Tolerated liquid diet well; Diet Consistent Carb, Soft, [place] and 1 Glucerna Zosyn and Flagyl IV, as per ID f/u ID recommendations f/u GI recommendations f/u FOBT f/u Stool Cx f/u C diff f/u Ova and Parasite 2) Thrombocytopenia :Chronic f/u CBC w Peripheral Smear f/u Manual Platelet 3) b/l lower extremity Rash Unknown etiology; As per ID, consider changing HIV med due to b/l lower extremity skin rash Apply skin emollients for now 4) Hx of polymyositis c/w Home Med: Prednisone 5mg PO Q8H 5) Cough VSS; Subjective fever before admission Placed new CXR order during admission f/u CXR 6) HIV without AIDS CD4 573 with Undetectable VL on 02/20/18 ID onboard; c/w Home meds, though, consider changing med due to b/l lower extremity skin rash 7) Liver cirrhosis :Poss due to Hx of Hep C; Liver enzimes and albumin WNL 8) Hemorrhoids :Known h/o internal/external for nearly one year Managed w OTC medications; Will be following up w GI as outpatient, as per eCW 9) DM2 Controlled with diet; likely Steroid induced (HELD due to possible infection) f/u Accuchecks AM 10) b/l lower extremity pain Neuropathy v polymyositis sequelae; resolved w placement of home pain medications This form is a permanent part of the medical record Clarification of your documentation is requested to better reflect the severity of illness and intensity of treatment of your patient. Indicators present [] Specify: [] [] Specify: [] [] Specify: [] [] Specify: [] Location in the medical record that reflects the above clinical findings: [] Treatment Provided: [] PHYSICIAN'S RESPONSE Based on your medical judgment of the clinical indicators outlined above please clarify the following: [] Practitioner response [] If unable to determine, please check the box, sign and date. Present On Admission (POA) Indicator: [] Present at the time of admission [] Not present at the time of admission [] Clinically Undetermined In responding to this query, please exercise your independent professional judgment. The fact that a question is asked does not imply that any particular answer is desired or expected. Thank you for your clarification on this documentation. If you have any questions please call. * Thank you, Annabelle García RN ext. #[phone] MTDD
--- NOTE | 2018-03-23 11:28 | PQF GENQUE ---
Dr. Gibson, Please specify type of diabetes: i.e. DM Type 2:Controlled versus Drug induced DM: DM Due to Steroid ? Other (please specify) Other explanation of clinical finding 03/23 Resident progress note: DM2 Controlled with diet; likely Steroid induced ( HELD due to possible infection) f/u Accuchecks AM This form is a permanent part of the medical record Clarification of your documentation is requested to better reflect the severity of illness and intensity of treatment of your patient. Indicators present [] Specify: [] [] Specify: [] [] Specify: [] [] Specify: [] Location in the medical record that reflects the above clinical findings: [] Treatment Provided: [] PHYSICIAN'S RESPONSE Based on your medical judgment of the clinical indicators outlined above please clarify the following: [] Practitioner response [] If unable to determine, please check the box, sign and date. Present On Admission (POA) Indicator: [] Present at the time of admission [] Not present at the time of admission [] Clinically Undetermined In responding to this query, please exercise your independent professional judgment. The fact that a question is asked does not imply that any particular answer is desired or expected. Thank you for your clarification on this documentation. If you have any questions please call. * Thank you, Annabelle Turner RN ext. #[phone] MTDD
[2018-03-23] MEDS: Hydrocerin CREAM TOP SCH ×2 (16:36→18:32)
--- NOTE | 2018-03-23 23:35 | CP.PCM.PN ---
Subjective - Date & Time of Evaluation Date of Evaluation: 03/23/18 Time of Evaluation: 14:00 - Subjective Subjective: Had episode of vomiting yesterday. Now is tolerating diet. Objective - Vital Signs/Intake and Output Vital Signs (last 24 hours): Temp Pulse Resp BP Pulse Ox 98.2 F 75 20 135/78 99 03/23/18 19:35 03/23/18 19:35 03/23/18 19:35 03/23/18 19:35 03/23/18 19:35 - Medications Medications: Current Medications Atorvastatin Calcium (Lipitor) 20 mg PO DAILY [facility] Last Admin: 03/23/18 09:48 Dose: 20 mg Gabapentin (Neurontin) 800 mg PO TID [facility] Last Admin: 03/23/18 16:34 Dose: 800 mg Home Med (Bictegrav/Emtricit/Tenofov Ala [Biktarvy 50-200-25 Mg Tablet]) 1 tab PO DAILY [facility] Piperacillin Sod/Tazobactam (Sod 3.375 gm/ Sodium Chloride) 100 mls @ 100 mls/ hr IVPB Q6 [facility] PRN Reason: Protocol Last Admin: 03/23/18 22:32 Dose: 100 mls/hr Metronidazole (Flagyl 500mg/100ml Ns) 100 mls @ 100 mls/hr IVPB Q8H [facility] Last Admin: 03/23/18 16:35 Dose: 100 mls/hr Ketorolac Tromethamine (Toradol) 30 mg IVP Q6 PRN PRN Reason: Pain, severe (8-10) Last Admin: 03/23/18 04:33 Dose: 30 mg Ketorolac Tromethamine (Toradol) 15 mg IVP Q6 PRN PRN Reason: Pain, moderate (4-7) Last Admin: 03/20/18 22:16 Dose: 15 mg Metoprolol Tartrate (Lopressor) 100 mg PO BID [facility] Last Admin: 03/23/18 16:35 Dose: 100 mg Multi-Ingredient Cream (Hydrocerin Cream) 1 applic TOP BID [facility] Last Admin: 03/23/18 18:32 Dose: Not Given Oxycodone HCl (Oxycodone Immediate Release Tab) 30 mg PO Q6 PRN PRN Reason: Pain, moderate (4-7) Last Admin: 03/23/18 18:05 Dose: 30 mg Pantoprazole Sodium (Protonix Ec Tab) 20 mg PO DAILY [facility] Last Admin: 03/23/18 09:47 Dose: 20 mg Prednisone (Prednisone Tab) 5 mg PO Q8 [facility] Last Admin: 03/23/18 16:34 Dose: 5 mg Sitagliptin Phosphate (Januvia) 100 mg PO DAILY [facility] Last Admin: 03/23/18 09:47 Dose: 100 mg Valsartan (Diovan) 320 mg PO DAILY [facility] Last Admin: 03/23/18 09:47 Dose: 320 mg - Labs Labs: 03/23/18 08:45 03/23/18 08:45 PT 12.3 Seconds (9.8-13.1) 03/21/18 04:40 INR 1.1 (0.9-1.2) 03/21/18 04:40 APTT 28.1 Seconds (25.6-37.1) 03/21/18 04:40 - Head Exam Head Exam: ATRAUMATIC - ENT Exam ENT Exam: Mucous Membranes Moist - Neck Exam Neck Exam: Full ROM - Respiratory Exam Respiratory Exam: Clear to Ausculation Bilateral - Cardiovascular Exam Cardiovascular Exam: +S1, +S2 - GI/Abdominal Exam GI & Abdominal Exam: Soft. absent: Tenderness Assessment and Plan (1) Colitis presumed infectious Assessment & Plan: WBC has come down and is tolerating diet. Continue IV abx. Status: Acute
[2018-03-24] MEDS: oxyCODONE 10 mg Immediate Release Tab PO PRN ×2 (00:04→13:35)
[2018-03-24] MEDS: metroNIDAZOLE 500mg/100ml NS 100 ML IVPB SCH ×3 (00:05→17:46)
[2018-03-24] MEDS: Piperacillin/Tazobact 3.375 GM in Sodium Chloride 0.9% 100 ML IVPB SCH ×4 (04:42→22:00)
[2018-03-24 06:04] LABS: HEMOGLOBIN 10.6 g/dL (12.0-18.0); MEAN CELL VOLUME 108.6 fl (80.0-94.0); MEAN CORPUSCULAR HEMOGLOBIN 37.3 pg (27.0-31.0); MEAN CORPUSCULAR HGB CONC 34.4 g/dL (33.0-37.0); RBC 2.85 Mil/uL (4.40-5.90); RED CELL DISTRIBUTION WIDTH 13.6 % (11.5-14.5); WHITE BLOOD COUNT 6.6 K/uL (4.8-10.8)
[2018-03-24 06:16] LABS: ALB/GLOB RATIO 1.1 (1.0-2.1); ALBUMIN 3.6 g/dL (3.5-5.0); ALT/SGPT 69 U/L (21-72); AST/SGOT 59 U/L (17-59); BLOOD UREA NITROGEN 18 mg/dl (9-20); CALCIUM 9.2 mg/dL (8.4-10.2); GFR AFRICAN-AMERICAN > 60; GFR NON-AFRICAN AMERICAN > 60
--- NOTE | 2018-03-24 06:22 | CP.PCM.PN ---
Subjective - Date & Time of Evaluation Date of Evaluation: 03/24/18 Time of Evaluation: 07:14 - Subjective Subjective: 57 y/o M evaluated and examined by bedside. Pt reports feeling well, denies abdominal pain, nausea, vomiting or bloody stools. Pt reports soft liquid BM and atributes it to not eating and previous soft clear diet. Pt afebrile, tolerating PO now and w/ NO acute events overnight. Objective - Vital Signs/Intake and Output Vital Signs (last 24 hours): Temp Pulse Resp BP Pulse Ox 98.6 F 86 18 139/81 96 03/24/18 05:15 03/24/18 05:15 03/24/18 05:15 03/24/18 05:15 03/24/18 05:15 - Medications Medications: Current Medications Atorvastatin Calcium (Lipitor) 20 mg PO DAILY [facility] Last Admin: 03/23/18 09:48 Dose: 20 mg Gabapentin (Neurontin) 800 mg PO TID [facility] Last Admin: 03/23/18 16:34 Dose: 800 mg Home Med (Bictegrav/Emtricit/Tenofov Ala [Biktarvy 50-200-25 Mg Tablet]) 1 tab PO DAILY [facility] Piperacillin Sod/Tazobactam (Sod 3.375 gm/ Sodium Chloride) 100 mls @ 100 mls/ hr IVPB Q6 [facility] PRN Reason: Protocol Last Admin: 03/24/18 04:42 Dose: 100 mls/hr Metronidazole (Flagyl 500mg/100ml Ns) 100 mls @ 100 mls/hr IVPB Q8H [facility] Last Admin: 03/24/18 00:05 Dose: 100 mls/hr Ketorolac Tromethamine (Toradol) 30 mg IVP Q6 PRN PRN Reason: Pain, severe (8-10) Last Admin: 03/23/18 04:33 Dose: 30 mg Ketorolac Tromethamine (Toradol) 15 mg IVP Q6 PRN PRN Reason: Pain, moderate (4-7) Last Admin: 03/20/18 22:16 Dose: 15 mg Metoprolol Tartrate (Lopressor) 100 mg PO BID [facility] Last Admin: 03/23/18 16:35 Dose: 100 mg Multi-Ingredient Cream (Hydrocerin Cream) 1 applic TOP BID [facility] Last Admin: 03/23/18 18:32 Dose: Not Given Oxycodone HCl (Oxycodone Immediate Release Tab) 30 mg PO Q6 PRN PRN Reason: Pain, moderate (4-7) Last Admin: 03/24/18 00:04 Dose: 30 mg Pantoprazole Sodium (Protonix Ec Tab) 20 mg PO DAILY [facility] Last Admin: 03/23/18 09:47 Dose: 20 mg Prednisone (Prednisone Tab) 5 mg PO Q8 [facility] Last Admin: 03/24/18 00:04 Dose: 5 mg Sitagliptin Phosphate (Januvia) 100 mg PO DAILY [facility] Last Admin: 03/23/18 09:47 Dose: 100 mg Valsartan (Diovan) 320 mg PO DAILY [facility] Last Admin: 03/23/18 09:47 Dose: 320 mg - Labs Labs: 03/24/18 05:30 03/24/18 05:30 PT 12.3 Seconds (9.8-13.1) 03/21/18 04:40 INR 1.1 (0.9-1.2) 03/21/18 04:40 APTT 28.1 Seconds (25.6-37.1) 03/21/18 04:40 - Constitutional Appears: Well, No Acute Distress - Head Exam Head Exam: ATRAUMATIC - Eye Exam Eye Exam: EOMI - ENT Exam ENT Exam: Mucous Membranes Moist - Neck Exam Neck Exam: Full ROM - Respiratory Exam Respiratory Exam: Clear to Ausculation Bilateral, NORMAL BREATHING PATTERN - Cardiovascular Exam Cardiovascular Exam: +S1, +S2, Murmur - GI/Abdominal Exam GI & Abdominal Exam: Distended, Soft, Normal Bowel Sounds. absent: Firm, Guarding, Rigid, Tenderness, Organomegaly, Rebound - Extremities Exam Extremities Exam: Full ROM. absent: Calf Tenderness, Pedal Edema, Tenderness - Neurological Exam Neurological Exam: Alert, Awake, CN II-XII Intact, Normal Gait, Oriented x3 Assessment and Plan - Assessment and Plan (Free Text) Assessment: 57 y/o M with PMhx of HIV, DM, HTN, and Hep C admitted for abdominal pain discovered to be severe colitis Severe Colitis -Afebrile. Leukocytosis Improved -Tolerating Regular diet -Currently on Zosyn and Flagyl IV, as per ID -ID and GI recommendations appreciated. -Blood Cx on 03/20 w/ NO growth in 3 days. UCx w/ NO growth-final. -Toradol PRN for pain management, Pantoprazole 2mg daily. -GI recommended to continue with IV antibiotics. -Pending results for FOBT, Stool Cx, C diff, Ova and Parasite. -As per ID, stool labs necessary for management decision. Thrombocytopenia -Chronic -Plt count 58-today-on baseline. B/L lower extremity Rash -Non-pruritic and painless -Unknown etiology; As per ID, consider changing HIV med due to b/l lower extremity skin rash -Apply skin emollients for now Hx of polymyositis -c/w Home Med: Prednisone 5mg PO Q8H Cough -Resolved -VSS; Subjective fever before admission -CXR on 03/22-NO active disease HIV without AIDS -CD4 573 with Undetectable VL on 02/20/18 -ID onboard; c/w Home meds, though, consider changing med due to b/l lower extremity skin rash Liver cirrhosis, unspecified -Poss due to Hx of Hep C; -Liver enzimes and albumin WNL on 03/22 -No previous Hx of paracentesis. Diabetes Mellitus Type 2-Diet controlled. -f/u Accuchecks AM -C/w home medications: gabapentin 800mg TID, Januvia 100mg daily. -Gabapentin 800mg TID PO. -Lipitor 20mg daily. HTN, controlled -Valsartan 320 mg PO daily -Lopressor 100mg daily. Prophylaxis SCDs for now; Await evaluation for possible GI bleed-hold Heparin. Incentive Spirometry for preventative pulmonary measures
[2018-03-24] MEDS: Patient's Own Med (Bictegrav/Emtricit/Tenofov Ala [Biktarvy 50-200-25 Mg Tablet] 1 TAB) PO SCH (09:18)
[2018-03-24] MEDS: Pantoprazole 20 mg EC Tab PO SCH (09:18)
[2018-03-24] MEDS: Hydrocerin CREAM TOP SCH ×2 (10:36→17:44)
--- NOTE | 2018-03-24 14:02 | CP.PCM.PN ---
Subjective - Date & Time of Evaluation Date of Evaluation: 03/24/18 Time of Evaluation: 14:02 - Subjective Subjective: ID Note- Pt. seen and examined. feels much better. denies any more abd. pain Objective - Vital Signs/Intake and Output Vital Signs (last 24 hours): Temp Pulse Resp BP Pulse Ox 98.1 F 88 18 126/84 96 03/24/18 12:01 03/24/18 12:01 03/24/18 12:01 03/24/18 12:01 03/24/18 12:01 - Medications Medications: Current Medications Atorvastatin Calcium (Lipitor) 20 mg PO DAILY [facility] Last Admin: 03/24/18 09:19 Dose: 20 mg Gabapentin (Neurontin) 800 mg PO TID [facility] Last Admin: 03/24/18 13:35 Dose: 800 mg Home Med (Bictegrav/Emtricit/Tenofov Ala [Biktarvy 50-200-25 Mg Tablet]) 1 tab PO DAILY [facility] Last Admin: 03/24/18 09:18 Dose: 1 tab Piperacillin Sod/Tazobactam (Sod 3.375 gm/ Sodium Chloride) 100 mls @ 100 mls/ hr IVPB Q6 [facility] PRN Reason: Protocol Last Admin: 03/24/18 09:16 Dose: 100 mls/hr Metronidazole (Flagyl 500mg/100ml Ns) 100 mls @ 100 mls/hr IVPB Q8H [facility] Last Admin: 03/24/18 09:17 Dose: 100 mls/hr Ketorolac Tromethamine (Toradol) 30 mg IVP Q6 PRN PRN Reason: Pain, severe (8-10) Last Admin: 03/23/18 04:33 Dose: 30 mg Ketorolac Tromethamine (Toradol) 15 mg IVP Q6 PRN PRN Reason: Pain, moderate (4-7) Last Admin: 03/20/18 22:16 Dose: 15 mg Metoprolol Tartrate (Lopressor) 100 mg PO BID [facility] Last Admin: 03/24/18 09:19 Dose: 100 mg Multi-Ingredient Cream (Hydrocerin Cream) 1 applic TOP BID [facility] Last Admin: 03/24/18 10:36 Dose: 1 applic Oxycodone HCl (Oxycodone Immediate Release Tab) 30 mg PO Q6 PRN PRN Reason: Pain, moderate (4-7) Last Admin: 03/24/18 13:35 Dose: 30 mg Pantoprazole Sodium (Protonix Ec Tab) 20 mg PO DAILY [facility] Last Admin: 03/24/18 09:18 Dose: 20 mg Prednisone (Prednisone Tab) 5 mg PO Q8 [facility] Last Admin: 03/24/18 09:17 Dose: 5 mg Sitagliptin Phosphate (Januvia) 100 mg PO DAILY [facility] Last Admin: 03/24/18 09:17 Dose: 100 mg Valsartan (Diovan) 320 mg PO DAILY [facility] Last Admin: 03/24/18 09:18 Dose: 320 mg - Labs Labs: 03/24/18 05:30 03/24/18 05:30 PT 12.3 Seconds (9.8-13.1) 03/21/18 04:40 INR 1.1 (0.9-1.2) 03/21/18 04:40 APTT 28.1 Seconds (25.6-37.1) 03/21/18 04:40 - Additional Findings Additional findings: - Constitutional Appears: Non-toxic, No Acute Distress - Head Exam Head Exam: ATRAUMATIC - Eye Exam Eye Exam: EOMI, PERRL - ENT Exam ENT Exam: Normal Oropharynx - Neck Exam Neck exam: Positive for: Full Rom - Respiratory Exam Respiratory Exam: Clear to Auscultation Bilateral, NORMAL BREATHING PATTERN - Cardiovascular Exam Cardiovascular Exam: RRR, +S1, +S2 - GI/Abdominal Exam GI & Abdominal Exam: Soft Additional comments: no tenderness, no distention + BS - Extremities Exam Additional comments: no edema B/L LE - Neurological Exam Neurological exam: Alert, Oriented x 3 Microbiology 03/20/18 21:05 Blood Blood Culture - Preliminary NO GROWTH AFTER 4 DAYS 03/22/18 11:26 Stool Ova and Parasite Concentrate Exam - Final 03/22/18 11:26 Stool Stool Culture - Final NO SALMONELLA, SHIGELLA OR CAMPYLOBACTER ISOLATED. 03/20/18 05:14 Urine Urine Culture - Final No Growth (<1,000 CFU/ML) Assessment and Plan (1) Colitis Status: Acute (2) HIV disease Status: Acute (3) Leukocytosis Status: Acute - Assessment and Plan (Free Text) Assessment: A/P- 57 year old male with HIV ( well controlled last CD4-573 and VL - undetectable based on results from 02/2018), DM II, polymyositis, admitted with left lower abd pain found to have severe colitis on abd Ct report along with leukocytosis. afebrile leukocytosis has resolved . stool cx- neg stool o and p -neg blood cx- neg stool c.diff- neg plan- continue with IV zosyn and flagyl for the colitis for now.day #6 more days. advise to be f/u by GI as outpatietn and by HIS PMD . if patient is being d/c home today as per family practice team advise to be d/c home on oral cipro mg bid a long with oral flagyl mg q8 hours for7 days. pt. to have f/u abd Ct as outpatient. patient to be f/u closely by his PMD and By GI as outpatient. All above d/w patient and he verbalizes full understanding of all above. All above also d/w DR.Pierre Higuera.
[2018-03-25 00:18] VITALS: RESP 18
[2018-03-25] MEDS: metroNIDAZOLE 500mg/100ml NS 100 ML IVPB SCH ×2 (00:47→08:16)
[2018-03-25] MEDS: oxyCODONE 10 mg Immediate Release Tab PO PRN ×3 (00:54→14:25)
[2018-03-25] MEDS: Piperacillin/Tazobact 3.375 GM in Sodium Chloride 0.9% 100 ML IVPB SCH ×2 (04:16→13:32)
--- NOTE | 2018-03-25 06:41 | CP.PCM.DIS ---
Provider - Provider Date of Admission: 03/20/18 15:32 Attending physician: Charlee Gibson MD Primary care physician: Dr Jordan at [facility]. Consults: GI: Dr Johnston. ID: Dr Welch Time Spent in preparation of Discharge (in minutes): 30 Diagnosis - Discharge Diagnosis (1) Colitis Status: Acute Hospital Course - Lab Results Lab Results: Micro Results 03/20/18 21:05 Blood Blood Culture - Preliminary NO GROWTH AFTER 4 DAYS 03/22/18 11:26 Stool Ova and Parasite Concentrate Exam - Final 03/22/18 11:26 Stool Stool Culture - Final NO SALMONELLA, SHIGELLA OR CAMPYLOBACTER ISOLATED. 03/20/18 05:14 Urine Urine Culture - Final No Growth (<1,000 CFU/ML) Most Recent Lab Values WBC 6.6 K/uL (4.8-10.8) 03/24/18 05:30 RBC 2.85 Mil/uL (4.40-5.90) L 03/24/18 05:30 Hgb 10.6 g/dL (12.0-18.0) L 03/24/18 05:30 Hct 30.9 % (35.0-51.0) L 03/24/18 05:30 MCV 108.6 fl (80.0-94.0) H 03/24/18 05:30 MCH 37.3 pg (27.0-31.0) H 03/24/18 05:30 MCHC 34.4 g/dL (33.0-37.0) 03/24/18 05:30 RDW 13.6 % (11.5-14.5) 03/24/18 05:30 Plt Count 58 K/uL (130-400) L 03/24/18 05:30 Manual Plt Count 59 K/uL (130-400) L 03/22/18 08:30 MPV 10.3 fl (7.2-11.7) 03/22/18 08:30 Neut % (Auto) 69.8 % (50.0-75.0) 03/22/18 08:30 Lymph % (Auto) 19.8 % (20.0-40.0) L 03/22/18 08:30 Dickson % (Auto) 9.5 % (0.0-10.0) 03/22/18 08:30 Eos % (Auto) 0.5 % (0.0-4.0) 03/22/18 08:30 Baso % (Auto) 0.4 % (0.0-2.0) 03/22/18 08:30 Neut # (Auto) 8.1 K/uL (1.8-7.0) H 03/22/18 08:30 Lymph # (Auto) 2.3 K/uL (1.0-4.3) 03/22/18 08:30 Dickson # (Auto) 1.1 K/uL (0.0-0.8) H 03/22/18 08:30 Eos # (Auto) 0.1 K/uL (0.0-0.7) 03/22/18 08:30 Baso # (Auto) 0.0 K/uL (0.0-0.2) 03/22/18 08:30 Neutrophils % (Manual) 82 % (42-75) H 03/20/18 11:00 Band Neutrophils % 2 % (0-2) 03/20/18 11:00 Lymphocytes % (Manual) 9 % (20-50) L 03/20/18 11:00 Monocytes % (Manual) 6 % (0-10) 03/20/18 11:00 Metamyelocytes % 1 % (0-0) H 03/20/18 11:00 Platelet Estimate Decreased (NORMAL) L 03/20/18 11:00 Anisocytosis (manual) Slight 03/20/18 11:00 Macrocytosis (manual) Slight 03/20/18 11:00 ESR 56 mm/hr (0-20) H 03/20/18 21:05 PT 12.3 Seconds (9.8-13.1) 03/21/18 04:40 INR 1.1 (0.9-1.2) 03/21/18 04:40 APTT 28.1 Seconds (25.6-37.1) 03/21/18 04:40 pO2 21 mm/Hg (30-55) L 03/20/18 15:11 VBG pH 7.38 (7.32-7.43) 03/20/18 15:11 VBG pCO2 49 mmHg (40-60) 03/20/18 15:11 VBG HCO3 25.5 mmol/L 03/20/18 15:11 VBG Total CO2 30.5 mmol/L (22-28) H 03/20/18 15:11 VBG O2 Sat (Calc) 31.0 % (40-65) L 03/20/18 15:11 VBG Base Excess 3.0 mmol/L (0.0-2.0) H 03/20/18 15:11 VBG Potassium 4.6 mmol/L (3.6-5.2) 03/20/18 15:11 Sodium 132.0 mmol/L (132-148) 03/20/18 15:11 Chloride 98.0 mmol/L (98-107) 03/20/18 15:11 Glucose 136 mg/dL (75-110) H 03/20/18 15:11 Lactate 1.9 mmol/L (0.7-2.1) 03/20/18 15:11 FiO2 21.0 % 03/20/18 15:11 Sodium 138 mmol/l (132-148) 03/24/18 05:30 Potassium 4.8 MMOL/L (3.6-5.0) 03/24/18 05:30 Chloride 102 mmol/L (98-107) 03/24/18 05:30 Carbon Dioxide 23 mmol/L (22-30) 03/24/18 05:30 Anion Gap 18 (10-20) 03/24/18 05:30 BUN 18 mg/dl (9-20) 03/24/18 05:30 Creatinine 1.1 mg/dl (0.8-1.5) 03/24/18 05:30 Est GFR ( Amer) > 60 03/24/18 05:30 Est GFR (Non-Af Amer) > 60 03/24/18 05:30 POC Glucose (mg/dL) 130 mg/dL (65-110) H 03/25/18 05:21 Random Glucose 147 mg/dL (75-110) H 03/24/18 05:30 Hemoglobin A1c 5.8 % (4.2-6.5) 03/20/18 21:05 Lactic Acid 2.3 MMOL/L (0.7-2.1) H 03/20/18 11:36 Calcium 9.2 mg/dL (8.4-10.2) 03/24/18 05:30 Total Bilirubin 0.7 mg/dl (0.2-1.3) 03/24/18 05:30 AST 59 U/L (17-59) D 03/24/18 05:30 ALT 69 U/L (21-72) 03/24/18 05:30 Alkaline Phosphatase 75 U/L (38-126) 03/24/18 05:30 Total Protein 6.9 G/DL (6.3-8.2) 03/24/18 05:30 Albumin 3.6 g/dL (3.5-5.0) 03/24/18 05:30 Globulin 3.3 gm/dL (2.2-3.9) 03/24/18 05:30 Albumin/Globulin Ratio 1.1 (1.0-2.1) 03/24/18 05:30 Lipase 158 U/L (23-300) 03/20/18 11:36 Vitamin B12 724 pg/mL (239-931) 03/20/18 21:05 Procalcitonin < 0.05 NG/ML (0.19-0.49) L 03/20/18 17:52 Venous Blood Potassium 4.6 mmol/L (3.6-5.2) 03/20/18 15:11 Urine Color Sonya (YELLOW) 03/22/18 22:58 Urine Clarity Slighty-cloudy (Clear) 03/22/18 22:58 Urine pH 5.0 (5.0-8.0) 03/22/18 22:58 Ur Specific [place] 1.024 (1.003-1.030) 03/22/18 22:58 Urine Protein 30 mg/dL (NEGATIVE) 03/22/18 22:58 Urine Glucose (UA) Neg mg/dL (Normal) 03/22/18 22:58 Urine Ketones Negative mg/dL (NEGATIVE) 03/22/18 22:58 Urine Blood Small (NEGATIVE) 03/22/18 22:58 Urine Nitrate Negative (NEGATIVE) 03/22/18 22:58 Urine Bilirubin Negative (NEGATIVE) 03/22/18 22:58 Urine Urobilinogen 0.2-1.0 mg/dL (0.2-1.0) 03/22/18 22:58 Ur Leukocyte Esterase Small Eliceo/uL (Negative) 03/22/18 22:58 Urine RBC (Auto) 7 /hpf (0-3) H 03/22/18 22:58 Urine Microscopic WBC 2 /hpf (0-5) 03/22/18 22:58 Ur Squamous Epith Cells 2 /hpf (0-5) 03/22/18 22:58 Urine Bacteria Rare (<OCC) 03/22/18 22:58 Urine Opiates Screen Positive (NEGATIVE) H 03/22/18 22:58 Urine Methadone Screen Negative (NEGATIVE) 03/22/18 22:58 Ur Barbiturates Screen Negative (NEGATIVE) 03/22/18 22:58 Ur Phencyclidine Scrn Negative (NEGATIVE) 03/22/18 22:58 Ur Amphetamines Screen Negative (NEGATIVE) 03/22/18 22:58 U Benzodiazepines Scrn Negative (NEGATIVE) 03/22/18 22:58 U Oth Cocaine Metabols Negative (NEGATIVE) 03/22/18 22:58 U Cannabinoids Screen Negative (NEGATIVE) 03/22/18 22:58 RPR Nonreactive (NONREACTIVE) 03/20/18 21:05 C. difficile Tox B Gene Not detected (Not Detected) 03/21/18 01:10 - Hospital Course Hospital Course: 57 y/o M with PMHx of HIV, Liver cirrhosis, polymyositis and DM admitted for evaluation pf severe colitis discovered on Abdominal CT scan. Pt was initiated on IV Zosyn and IV Metronidazole. GI and ID were consulted. C.Diff was negative. Pt improved over the days, remained stable, tolerating PO regular diet , no more abdominal pain or nausea reported. Stool culture, ova and parasite were negative. Pt will finish PO Ciprofloxacin and PO Metronidazole at home x 7 days. Will f/u with [employer] [employer] within 1 week. - Date & Time of H&P Date of H&P: 03/20/18 Time of H&P: 19:16 Discharge Exam - Head Exam Head Exam: ATRAUMATIC - Eye Exam Eye Exam: EOMI - ENT Exam ENT Exam: Mucous Membranes Moist - Neck Exam Neck exam: Full Rom - Respiratory Exam Respiratory Exam: Clear to PA & Lateral, NORMAL BREATHING PATTERN - Cardiovascular Exam Cardiovascular Exam: REGULAR RHYTHM, +S1, +S2 - GI/Abdominal Exam GI & Abdominal Exam: Normal Bowel Sounds, Soft. absent: Distended, Firm, Guarding, Tenderness - Extremities Exam Extremities exam: full ROM, normal inspection - Neurological Exam Neurological exam: Alert, Oriented x3 - Psychiatric Exam Psychiatric exam: Normal Affect, Normal Mood Discharge Plan - Discharge Medications Prescriptions: Ciprofloxacin [Cipro] 500 mg PO BID #14 tab Metronidazole 500 mg PO BID #14 tablet - Follow Up Plan Condition: STABLE Disposition: HOME/ ROUTINE Additional Instructions: -Please f/u with PMD within 1 week. -Please finish 2-ktry-hfmvdjskmd-therapy, Ciprofloxacin and Metronidazole, twice a day. -Please follow [employer] [employer] (stomach/intestine specialist) outpatient in 1 week for re-evaluation. Referrals: Alessio Jordan MD [Family Provider] - Tim Johnston MD [Staff Provider] -
[2018-03-25] MEDS: Patient's Own Med (Bictegrav/Emtricit/Tenofov Ala [Biktarvy 50-200-25 Mg Tablet] 1 TAB) PO SCH (08:15)
[2018-03-25] MEDS: Pantoprazole 20 mg EC Tab PO SCH (08:16)
[2018-03-25] MEDS: Hydrocerin CREAM TOP SCH (08:17)
[2018-03-25 12:09] VITALS: BP 115/81; PULSE 70; TEMP 97.8; O2SAT 98
== END 2018-03-25 14:31 | disposition home or self-care (01) | DRG 392 ==
LOC: H.ER 09:53 → H.ERHOLD 15:32 → H.TEL 20:24
PROVIDERS: ADMIT Family Medicine Geriatric Medicine; ATTEND Family Medicine Geriatric Medicine
DX: A09 Infectious gastroenteritis and colitis, unspecified (principal); Z21 Asymptomatic human immunodeficiency virus [HIV] infection status; K74.69 Other cirrhosis of liver; D69.6 Thrombocytopenia, unspecified; D72.828 Other elevated white blood cell count; B19.20 Unspecified viral hepatitis C without hepatic coma; E11.9 Type 2 diabetes mellitus without complications; G62.9 Polyneuropathy, unspecified; G89.29 Other chronic pain; L27.0 Generalized skin eruption due to drugs and medicaments taken internally; Z87.39 Personal history of other diseases of the musculoskeletal system and connective tissue; K64.8 Other hemorrhoids; K64.4 Residual hemorrhoidal skin tags; T50.995A Adverse effect of other drugs, medicaments and biological substances, initial encounter; F17.210 Nicotine dependence, cigarettes, uncomplicated; Z96.652 Presence of left artificial knee joint; Z88.2 Allergy status to sulfonamides

== ENCOUNTER 2018-07-29 15:47 | Observation (INO) | payer MEDICARE, SELFPAY ==
[2018-07-29 15:47] VITALS: BMI 25.0
--- NOTE | 2018-07-29 16:34 | ED PDOC ---
HPI: General Adult Time Seen by Provider: 07/29/18 16:31 Chief Complaint (Nursing): Trauma Chief Complaint (Provider): fall/weakness History Per: Patient (57 y/o male h/o HIV/Hep C/Cirrhosis/Polymyositis/Brain hemorrhage here for evaluation of fall associated with ongoing weakness x 1 year. Patient states he has been on prednisone for polymyositis that has helped with weakness. Is being steadily decreased to 5mg. Denies any fevers/ chills/vomiting. Notes fall x today due to weakness. Landed on hands and knees today and notes moderate pain in bilateral knees.) Past Medical History Reviewed: Historical Data, Nursing Documentation, Vital Signs Vital Signs: Last Vital Signs Temp 98.3 F 07/30/18 16:40 Pulse 73 07/30/18 17:08 Resp 19 07/30/18 16:40 BP 161/89 H 07/30/18 17:08 Pulse Ox 100 07/30/18 16:40 - Medical History PMH: HIV, HTN, Seizures Denies: Chronic Kidney Disease Other PMH: cirrhosis; polymyositis - Family History Family History: States: Unknown Family Hx - Home Medications Home Medications: Ambulatory Orders Medication Instructions Recorded Allopurinol [Zyloprim] 1 tab PO DAILY 03/20/18 Atorvastatin Calcium 20 mg PO DAILY 03/20/18 Bictegrav/Emtricit/Tenofov Ala 1 tab PO DAILY 03/20/18 [Biktarvy 50-200-25 mg Tablet] Gabapentin [Neurontin] 1 tab PO TID 03/20/18 Metoprolol Tartrate [Lopressor] 1 tab PO BID 03/20/18 Omeprazole 1 cap PO DAILY 03/20/18 Prednisone 1 tab PO Q8 03/20/18 SITagliptin [Januvia] 1 tab PO DAILY 03/20/18 Valsartan [Diovan] 1 tab PO DAILY 03/20/18 oxyCODONE [oxyCODONE Immediate 1 tab PO Q6 PRN 03/20/18 Release Tab] - Allergies Allergies/Adverse Reactions: Allergies Allergy/AdvReac Type Severity Reaction Status Date / Time No Known Allergies Allergy Verified 04/14/18 12:09 Review of Systems ROS Statement: Except As Marked, All Systems Reviewed And Found Negative Physical Exam - Reviewed Nursing Documentation Reviewed: Yes Vital Signs Reviewed: Yes - Physical Exam Appears: Positive for: Well, Non-toxic, No Acute Distress Head Exam: Positive for: ATRAUMATIC, NORMAL INSPECTION, NORMOCEPHALIC Skin: Positive for: Normal Color, Warm, DRY Eye Exam: Positive for: EOMI, Normal appearance, PERRL ENT: Positive for: Normal ENT Inspection Neck: Positive for: Normal, Painless ROM Cardiovascular/Chest: Positive for: Regular Rate, Rhythm Respiratory: Positive for: CNT, Normal Breath Sounds Gastrointestinal/Abdominal: Positive for: Normal Exam, Soft Back: Positive for: Normal Inspection Extremity: Positive for: Normal ROM, Other (abrasion noted anterior patella bilaterally. no effusion noted.) Neurologic/Psych: Positive for: Alert, Oriented, Other (weakness noted bilateral lower extremities; patient unable to keep legs lifted x 5 seconds.) - Laboratory Results Result Diagrams: 07/29/18 18:00 07/30/18 05:45 - ECG O2 Sat by Pulse Oximetry: 99 - Progress ED Course And Treament: ekg: nsr 64 bpm; no ectopy no acute changes done at 17:20 ct head: IMPRESSION: No acute intracranial abnormality. Mild chronic microangiopathic changes and mild age-related global parenchymal volume loss. Patient states moderate pain in knees but usually takes oxycodone for pain. Declines tramadol. [facility] reviewed. Patient has had rx for oxycodone 30mg #120 quantity for 30 days prescribed 07/21/2018 Oxycodone 30 mg x 1 dose for pain control given in ED d/w Dr. Mauricio for admission for weakness/falls/cortisol deficiency Disposition - Clinical Impression Clinical Impression: Weakness, Falls, Cortisol deficiency - Patient ED Disposition Is Patient to be Admitted: Yes - Disposition Disposition Time: 19:26 Condition: FAIR - Pt Status Changed To: Hospital Disposition Of: Observation
--- NOTE | 2018-07-29 17:10 | CT ---
Date of service: 07/29/2018 PROCEDURE: CT HEAD WITHOUT CONTRAST. HISTORY: Weakness COMPARISON: 04/14/2018. TECHNIQUE: Axial computed tomography images were obtained through the head/brain without intravenous contrast. Radiation dose: Total exam DLP = mGy-cm. This CT exam was performed using one or more of the following dose reduction techniques: Automated exposure control, adjustment of the mA and/or kV according to patient size, and/or use of iterative reconstruction technique. FINDINGS: HEMORRHAGE: No intracranial hemorrhage. BRAIN: There are mild chronic microangiopathic changes. There is no mass, mass effect or abnormal extra-axial fluid collection. There is no territorial infarction. The midline sagittal structures are normal. VENTRICLES: There is mild age-related global parenchymal volume loss and proportionate enlargement of the ventricles and cortical sulci. CALVARIUM: The skull base and calvarium are normal. PARANASAL SINUSES: Unremarkable as visualized. No significant inflammatory changes. MASTOID AIR CELLS: Unremarkable as visualized. No inflammatory changes. OTHER FINDINGS: None. IMPRESSION: No acute intracranial abnormality. Mild chronic microangiopathic changes and mild age-related global parenchymal volume loss.
--- NOTE | 2018-07-29 18:09 | RAD ---
Date of service: 07/29/2018 HISTORY: routine COMPARISON: 03/22/2018. FINDINGS: LUNGS: The lungs are well inflated and clear. PLEURA: No significant pleural effusion identified, no pneumothorax apparent. CARDIOVASCULAR: Normal. OSSEOUS STRUCTURES: No significant abnormalities. VISUALIZED UPPER ABDOMEN: Normal. OTHER FINDINGS: None. IMPRESSION: No active pulmonary disease.
[2018-07-29 18:10] LABS: BASO % 0.2 % (0.0-2.0); HEMOGLOBIN 13.1 g/dL (12.0-18.0); LYMPH # 0.8 K/uL (1.0-4.3); MEAN CELL VOLUME 109.2 fl (80.0-94.0); MEAN CORPUSCULAR HEMOGLOBIN 38.1 pg (27.0-31.0); MEAN CORPUSCULAR HGB CONC 34.9 g/dL (33.0-37.0); MEAN PLATELET VOLUME 9.7 fl (7.2-11.7); MONO # 0.4 K/uL (0.0-0.8); MONO % 4.1 % (0.0-10.0); NEUT # 8.9 K/uL (1.8-7.0); NEUT % 87.7 % (50.0-75.0); PLATELET COUNT 75 K/uL (130-400); RBC 3.43 Mil/uL (4.40-5.90); RED CELL DISTRIBUTION WIDTH 14.3 % (11.5-14.5); WHITE BLOOD COUNT 10.1 K/uL (4.8-10.8)
[2018-07-29 18:27] LABS: INR 1.1
[2018-07-29] MEDS ORDERED: oxyCODONE 10 mg ER Tab (oxyCONTIN) PO STA (18:28)
--- NOTE | 2018-07-29 18:29 | RAD ---
Date of service: 07/29/2018 PROCEDURE: Bilateral Knee Radiographs. HISTORY: fall; bilateral knee pain COMPARISON: 10/24/2017. FINDINGS: BONES: Right Knee: Bone alignment and mineralization are normal. There is no acute displaced fracture or bone destruction. Left Knee: Bone alignment and mineralization are normal. There is no acute displaced fracture or bone destruction. JOINTS: Right Knee: Mild tricompartmental degenerative osteoarthrosis with reduced joint spaces, marginal spurring and chondrocalcinosis, worse in the lateral compartment. Left knee: Status post total cemented arthroplasty, no evidence for dislocation. SOFT TISSUES: Right Knee: Normal. Left Knee: Normal. JOINT EFFUSION: Right Knee: None. Left Knee: None. OTHER FINDINGS: Advanced atherosclerotic vascular calcifications. IMPRESSION: No acute displaced fracture or dislocation.
[2018-07-29 18:30] LABS: ALB/GLOB RATIO 1.3 (1.0-2.1); ALT/SGPT 41 U/L (21-72); AST/SGOT 33 U/L (17-59); BLOOD UREA NITROGEN 28 mg/dl (9-20); CALCIUM 9.8 mg/dL (8.4-10.2); GFR NON-AFRICAN AMERICAN > 60; PARTIAL THROMBOPLASTIN TIME 24.4 Seconds (25.6-37.1)
[2018-07-29] MEDS ORDERED: oxyCODONE 10 mg ER Tab (oxyCONTIN) PO ONE (19:10)
[2018-07-29 19:33] LABS: SQUAMOUS EPITHIAL 1 /hpf (0-5); URINE BILIRUBIN NEGATIVE (NEGATIVE); URINE BLOOD NEGATIVE (NEGATIVE); URINE CLARITY CLEAR (Clear); URINE COLOR YELLOW (YELLOW); URINE GLUCOSE (UA) 50 mg/dL (Normal); URINE LEUKOCYTE ESTERASE NEG Leu/uL (Negative); URINE PROTEIN 100 mg/dL (NEGATIVE)
[2018-07-29 20:07] LABS: BANDS 1 % (0-2); LYMPHOCYTE 8 % (20-50); METAMYELOCYTE 1 % (0-0); MONOCYTE 4 % (0-10); NEUTROPHIL 86 % (42-75); TOTAL CELLS COUNTED 100
[2018-07-29 20:08] LABS: LARGE PLATELETS PRESENT; PLATELET ESTIMATE DECREASED (NORMAL)
--- NOTE | 2018-07-29 20:25 | CP.PCM.HP ---
<Catalina Olivera - Last Filed: 07/29/18 21:40> History of Present Illness - History of Present Illness History of Present Illness: 57 yr old M presented to ED with complaint of acute on chronic worsening bilateral LE weakness with 5 falls in the past 2 days. Reports falling onto his left knee and legs multiple times. Denies head trauma. PMHx includes HIV, HCV, Lower GI bleed, NIDDM, HTN, thrombocytopenia, Gout, polymyositis on chronic prednisone, left total knee replacement, asthma, chronic muscle weakness and poor balance. Patient reports he just loses all strength and drops to the floor. Reports occasional dizziness in the mornings when he is about to get out of bed. Denies nausea, vomiting, fever, chills, confusion, visual changes. Patient reports hx chronic back pain and right knee pain for which he sees pain management. Reports compliance with his medications. Recently has been seeing Dr. Parkinson-neurology whom has been attempting to titrate down his prednisone dose , but patient said he feels increased weakness with lower dose, so today he took his prior dose of 15mg total for the day. PMD: Dr. Jordan (next appt 08/13/18) Specialist: Dr. Parkinson-neurology; Jarrod Park (pain management-[facility]) PMHx: HIV, HCV, Lower GI bleed, NIDDM, HTN, thrombocytopenia, Gout, polymyositis on chronic prednisone, asthma, chronic muscle weakness and poor balance SurgHx: left total knee replacement (x 2 ; s/p infection 25yrs ago) FMhx: mother breast cancer, DM SocHx: 7 cig daily x 1yr (had quit 30 yrs prior to restarting) Medications: see me rec Allergies: Bactrim-rash Code status: full code Emergency contact: Kiya Castañeda () [phone] ED course: 151/82 mmHg, HR 78, Temp 98.5 F, Resp rate 18, SpO2 99% on room air -EKG: normal sinus rhythm at 64 bpm, nonspecific ST changes -CBC: platelets 75; rest wnl -coags: wnl -CMP: wnl -random glucose 184 mg/dl -troponin < 0.0120 -UA: negative -Head CT: no acute intracranial abnormality -Bilateral knee xray: advanced atherosclerotic vascular calcifications, no acute displaced fracture or dislocation -CXR: no active pulmonary disease -ED treatment: Oxycodone 30mg PO once, Tramadol 50mg PO once Present on Admission - Present on Admission Any Indicators Present on Admission: Yes History of DVT/PE: No History of Uncontrolled Diabetes: No Urinary Catheter: No Decubitus Ulcer Present: No History Surgical Site Infection Following: Orthopedic Procedures (left total knee replacement infection 20 yrs ago, had 2nd left TKR within a year) Review of Systems - Constitutional Constitutional: Headache (occasional, occipital, resolves on its own), Weakness (bilateral LE) - EENT Eyes: absent: Blurred Vision, Loss of Vision Ears: absent: Disequilibrium Nose/Mouth/Throat: absent: Neck Pain - Cardiovascular Cardiovascular: absent: Chest Pain, Dyspnea, Leg Edema, Palpitations, Syncope - Respiratory Respiratory: absent: Cough, Dyspnea, Hemoptysis - Gastrointestinal Gastrointestinal: absent: Diarrhea, Nausea, Vomiting - Genitourinary Genitourinary: absent: Difficulty Urinating, Dysuria - Musculoskeletal Musculoskeletal: Arthralgias, Muscle Weakness (bilateral LE). absent: Numbness , Tingling - Integumentary Integumentary: absent: Bleeding Lesions - Neurological Neurological: absent: Confusion, Dizziness - Endocrine Endocrine: absent: Polydipsia, Polyphagia, Polyuria - Hematologic/Lymphatic Hematologic: absent: Easy Bleeding, Easy Bruising Past Patient History - Past Medical History & Family History Past Medical History?: Yes - Past Social History Smoking Status: Light Smoker < 10 Cigarettes Daily - CARDIAC Hx Hypertension: Yes - PULMONARY Hx Respiratory Disorders: No - NEUROLOGICAL Hx Seizures: Yes - HEENT Hx HEENT Problems: No - RENAL Hx Chronic Kidney Disease: No - ENDOCRINE/METABOLIC Hx Endocrine Disorders: Yes Hx Diabetes Mellitus Type 2: Yes - HEMATOLOGICAL/ONCOLOGICAL Hx Human Immunodeficiency Virus (HIV): Yes - INTEGUMENTARY Hx Dermatological Problems: Yes Hx Eczema: Yes - MUSCULOSKELETAL/RHEUMATOLOGICAL Hx Musculoskeletal Disorders: Yes - GASTROINTESTINAL Hx Gastrointestinal Disorders: Yes Hx Ulcer: Yes Other/Comment: Liver Cirrhosis - GENITOURINARY/GYNECOLOGICAL Hx Genitourinary Disorders: No - PSYCHIATRIC Hx Psychophysiologic Disorder: Yes Hx Substance Use: No - SURGICAL HISTORY Hx Surgeries: Yes Hx Arthroscopy: Yes - ANESTHESIA Hx Anesthesia: Yes Hx Anesthesia Reactions: No Hx Malignant Hyperthermia: No Meds Allergies/Adverse Reactions: Allergies Allergy/AdvReac Type Severity Reaction Status Date / Time No Known Allergies Allergy Verified 04/14/18 12:09 Physical Exam - Constitutional Appears: No Acute Distress - Head Exam Head Exam: ATRAUMATIC, NORMOCEPHALIC - Eye Exam Eye Exam: EOMI, PERRL - ENT Exam ENT Exam: Mucous Membranes Moist. absent: Normal Oropharynx (poor dentition, missing a few front teeth) - Neck Exam Neck exam: Positive for: Full Rom. Negative for: Lymphadenopathy - Respiratory Exam Respiratory Exam: Clear to Auscultation Bilateral, NORMAL BREATHING PATTERN. absent: Rales, Rhonchi, Wheezes - Cardiovascular Exam Cardiovascular Exam: REGULAR RHYTHM, +S1, +S2 - GI/Abdominal Exam GI & Abdominal Exam: Distended, Normal Bowel Sounds, Soft, Tenderness (diffuse mild tenderness in bilateral upper and lower quadrants). absent: Guarding, Rebound, Rigid - Extremities Exam Extremities exam: Positive for: full ROM, pedal pulses present. Negative for: calf tenderness, pedal edema, tenderness Additional comments: multiple abrasions along bilateral lower extremities - Back Exam Back exam: FULL ROM. absent: CVA tenderness (L), CVA tenderness (R) - Neurological Exam Neurological exam: Alert, CN II-XII Intact, Oriented x3 - Psychiatric Exam Psychiatric exam: Normal Affect, Normal Mood - Skin Skin Exam: Dry, Normal Color, Warm Results - Vital Signs Recent Vital Signs: Last Vital Signs Temp 98.5 F 07/29/18 15:58 Pulse 64 07/29/18 17:20 Resp 18 07/29/18 15:58 BP 151/82 H 07/29/18 15:58 Pulse Ox 99 07/29/18 18:33 - Labs Result Diagrams: 07/29/18 18:00 07/29/18 18:00 Labs: Laboratory Results - last 24 hr 07/29/18 07/29/18 07/29/18 18:00 18:00 18:00 WBC 10.1 RBC 3.43 L Hgb 13.1 Hct 37.5 MCV 109.2 H MCH 38.1 H MCHC 34.9 RDW 14.3 Plt Count 75 L MPV 9.7 Neut % (Auto) 87.7 H Lymph % (Auto) 8.0 L [place] % (Auto) 4.1 Eos % (Auto) 0.0 Baso % (Auto) 0.2 Neut # (Auto) 8.9 H Lymph # (Auto) 0.8 L [place] # (Auto) 0.4 Eos # (Auto) 0.0 Baso # (Auto) 0.0 Neutrophils % (Manual) 86 H Band Neutrophils % 1 Lymphocytes % (Manual) 8 L Monocytes % (Manual) 4 Metamyelocytes % 1 H Platelet Estimate Decreased L Large Platelets Present Macrocytosis (manual) Slight PT 12.0 INR 1.1 APTT 24.4 L Sodium 137 Potassium 3.8 Chloride 102 Carbon Dioxide 23 Anion Gap 16 BUN 28 H Creatinine 0.7 L Est GFR ( Amer) > 60 Est GFR (Non-Af Amer) > 60 Random Glucose 184 H Calcium 9.8 Magnesium 1.9 Total Bilirubin 0.7 AST 33 ALT 41 Alkaline Phosphatase 89 Troponin I < 0.0120 Total Protein 7.2 Albumin 4.0 Globulin 3.2 Albumin/Globulin Ratio 1.3 Urine Color Urine Clarity Urine pH Ur Specific [place] Urine Protein Urine Glucose (UA) Urine Ketones Urine Blood Urine Nitrate Urine Bilirubin Urine Urobilinogen Ur Leukocyte Esterase Urine RBC (Auto) Urine Microscopic WBC Ur Squamous Epith Cells 07/29/18 19:17 WBC RBC Hgb Hct MCV MCH MCHC RDW Plt Count MPV Neut % (Auto) Lymph % (Auto) [place] % (Auto) Eos % (Auto) Baso % (Auto) Neut # (Auto) Lymph # (Auto) [place] # (Auto) Eos # (Auto) Baso # (Auto) Neutrophils % (Manual) Band Neutrophils % Lymphocytes % (Manual) Monocytes % (Manual) Metamyelocytes % Platelet Estimate Large Platelets Macrocytosis (manual) PT INR APTT Sodium Potassium Chloride Carbon Dioxide Anion Gap BUN Creatinine Est GFR ( Amer) Est GFR (Non-Af Amer) Random Glucose Calcium Magnesium Total Bilirubin AST ALT Alkaline Phosphatase Troponin I Total Protein Albumin Globulin Albumin/Globulin Ratio Urine Color Yellow Urine Clarity Clear Urine pH 6.0 Ur Specific [place] 1.021 Urine Protein 100 Urine Glucose (UA) 50 Urine Ketones Negative Urine Blood Negative Urine Nitrate Negative Urine Bilirubin Negative Urine Urobilinogen 4.0 Ur Leukocyte Esterase Neg Urine RBC (Auto) 3 Urine Microscopic WBC 1 Ur Squamous Epith Cells 1 Assessment & Plan - Assessment and Plan (Free Text) Assessment: 57 yr old M admitted for bilateral lower extremity weakness with multiple falls with PMHx including HIV, HCV, Lower GI bleed, NIDDM, HTN, thrombocytopenia, Gout , polymyositis on chronic prednisone, left total knee replacement, asthma, chronic muscle weakness and poor balance. Bilateral lower extremity weakness and pain -acute on chronic, persistent; likely secondary to polymyositis vs other demyelinating disorder -Head CT: no acute intracranial abnormality -Bilateral knee xray: advanced atherosclerotic vascular calcifications, no acute displaced fracture or dislocation -admit to [facility] -Neurology consult appreciated: Dr. Ortiz (discussed case with Dr. Parkinson) -start Dexamethasone 10mg IV Q12 -continue home medication Gabapentin 800mg PO TID; hold home prednisone 5mg PO Q8 -fall precautions, PT/OT Polymyositis -chronic, uncontrolled (per patient dx with muscle biopsy many years ago) -Neurology consult appreciated -management as above HIV-Asymptomatic -chronic, controlled -02/20/18: HIV RNA Quant undetectable; absolute CD4 count 573 -continue home medications (Biktarvy [id number] 1 tab PO QD) Hypertension -chronic, controlled -continue home medications (Losartan 100mg PO QD, Lopressor 100mg PO QD) NIDDM Type 2 -chronic, controlled -04/30/18: HbA1c 6.0 -continue home medications (Januvia 100mg PO QD, Atorvastatin 20mg PO QHS) Thrombocytopenia -chronic, stable -likely secondary to splenomegaly vs possible blood dyscrasia -avoid medications that cause thrombocytopenia -monitor plts Chronic back pain -chronic, severe (see pain management) -continue home medications (Oxycodone 30mg PO Q6 PRN severe pain) Gout -chronic, controlled -continue home medications (Allopurinol 100mg PO QD) Tobacco abuse -chronic, controlled -Nicotine patch 7mg patch QD DVT prophylaxis -SCD's for now - Date & Time Date: 07/29/18 Time: 20:25 <Ashkan Torres - Last Filed: 07/30/18 02:12> Results - Vital Signs Recent Vital Signs: Last Vital Signs Temp 97.6 F 07/30/18 00:26 Pulse 67 07/30/18 00:26 Resp 19 07/30/18 00:26 BP 180/98 H 07/30/18 00:17 Pulse Ox 95 07/30/18 00:26 - Labs Result Diagrams: 07/29/18 18:00 07/29/18 18:00 Labs: Laboratory Results - last 24 hr 07/29/18 07/29/18 07/29/18 18:00 18:00 18:00 WBC 10.1 RBC 3.43 L Hgb 13.1 Hct 37.5 MCV 109.2 H MCH 38.1 H MCHC 34.9 RDW 14.3 Plt Count 75 L MPV 9.7 Neut % (Auto) 87.7 H Lymph % (Auto) 8.0 L [place] % (Auto) 4.1 Eos % (Auto) 0.0 Baso % (Auto) 0.2 Neut # (Auto) 8.9 H Lymph # (Auto) 0.8 L [place] # (Auto) 0.4 Eos # (Auto) 0.0 Baso # (Auto) 0.0 Neutrophils % (Manual) 86 H Band Neutrophils % 1 Lymphocytes % (Manual) 8 L Monocytes % (Manual) 4 Metamyelocytes % 1 H Platelet Estimate Decreased L Large Platelets Present Macrocytosis (manual) Slight ESR PT 12.0 INR 1.1 APTT 24.4 L Sodium 137 Potassium 3.8 Chloride 102 Carbon Dioxide 23 Anion Gap 16 BUN 28 H Creatinine 0.7 L Est GFR ( Amer) > 60 Est GFR (Non-Af Amer) > 60 Random Glucose 184 H Calcium 9.8 Magnesium 1.9 Total Bilirubin 0.7 AST 33 ALT 41 Alkaline Phosphatase 89 Total Creatine Kinase Troponin I < 0.0120 Total Protein 7.2 Albumin 4.0 Globulin 3.2 Albumin/Globulin Ratio 1.3 Urine Color Urine Clarity Urine pH Ur Specific [place] Urine Protein Urine Glucose (UA) Urine Ketones Urine Blood Urine Nitrate Urine Bilirubin Urine Urobilinogen Ur Leukocyte Esterase Urine RBC (Auto) Urine Microscopic WBC Ur Squamous Epith Cells 07/29/18 07/29/18 07/29/18 19:17 22:54 22:54 WBC RBC Hgb Hct MCV MCH MCHC RDW Plt Count MPV Neut % (Auto) Lymph % (Auto) [place] % (Auto) Eos % (Auto) Baso % (Auto) Neut # (Auto) Lymph # (Auto) [place] # (Auto) Eos # (Auto) Baso # (Auto) Neutrophils % (Manual) Band Neutrophils % Lymphocytes % (Manual) Monocytes % (Manual) Metamyelocytes % Platelet Estimate Large Platelets Macrocytosis (manual) ESR 43 H PT INR APTT Sodium Potassium Chloride Carbon Dioxide Anion Gap BUN Creatinine Est GFR ( Amer) Est GFR (Non-Af Amer) Random Glucose Calcium Magnesium Total Bilirubin AST ALT Alkaline Phosphatase Total Creatine Kinase 45 L Troponin I Total Protein Albumin Globulin Albumin/Globulin Ratio Urine Color Yellow Urine Clarity Clear Urine pH 6.0 Ur Specific [place] 1.021 Urine Protein 100 Urine Glucose (UA) 50 Urine Ketones Negative Urine Blood Negative Urine Nitrate Negative Urine Bilirubin Negative Urine Urobilinogen 4.0 Ur Leukocyte Esterase Neg Urine RBC (Auto) 3 Urine Microscopic WBC 1 Ur Squamous Epith Cells 1 Attending/Attestation - Attestation I have personally seen and examined this patient.: Yes I have fully participated in the care of the patient.: Yes I have reviewed all pertinent clinical information: Yes Notes (Text): 07/30/18 01:47 I saw and examined thid patient shoulder to shoulder with Dr Olivera. the assessment and plan represent my direct input. This is a 57 years old male with hx of Left Total Knee Arthroplasty done over 20 years with left knee pain and stiffness, DM II, HIV and Polymyositis on Prednisone titrated down to 10mg daily. He comes with new weakness and instability of the lower extremities with multiple falls since the reduction of the Prednisone. A&P #. Symmetric weakness to the lower extremities most likely due to the Polymyositis and less likely to the DM II or to HIV neuropathy - Dr Parkinson recommended Decadron 10mg IV [id number] - Consult Neurology Dr Ortiz - EMG and Nerve conduction studies on discharge - CPK - PT/OT #. Chronic left Knee pain s/p Left Total Knee Arthroplasty - Consult Dr Parks Orthopedic - Pain management #. Dehydration - IV Fluid - follow Renal labs #. DM II with hyperglycemia - Regular Insulin sliding scale according to Accucheck - Januvia #. HTN - Lopressor -Valsartan #. HIV - home meds Ashkan Torres MD
[2018-07-29] MEDS ORDERED: OXYCODONE PO PRN (21:03)
[2018-07-29] MEDS: Dexamethasone 10 MG in Sodium Chloride 0.9% 50 ML IVPB SCH (23:59)
[2018-07-29] MEDS: Sodium Chloride 0.9% 1,000 ML IV SCH (23:59)
--- NOTE | 2018-07-30 06:38 | CARD ---
APPROVED REPORT Date of service: 07/29/2018 EKG Measurement Heart [id number] <Conclusion> Normal sinus rhythm Voltage criteria for left ventricular hypertrophy Nonspecific ST abnormality Abnormal ECG
[2018-07-30 07:07] LABS: BLOOD UREA NITROGEN 26 mg/dl (9-20); CALCIUM 9.5 mg/dL (8.4-10.2); GFR NON-AFRICAN AMERICAN > 60
[2018-07-30] MEDS: Sodium Chloride 0.9% 1,000 ML IV SCH ×2 (07:56→14:50)
[2018-07-30] MEDS ORDERED: Pantoprazole 20 mg EC Tab PO SCH (09:00)
[2018-07-30] MEDS ORDERED: Patient's Own Med (Bictegrav/Emtricit/Tenofov Ala [Biktarvy 50-200-25 Mg Tablet] 1 TAB) PO SCH (09:00)
[2018-07-30] MEDS: Dexamethasone 10 MG in Sodium Chloride 0.9% 50 ML IVPB SCH ×2 (09:22→11:05)
[2018-07-30] MEDS: Insulin Regular 100 units/ml SC SCH ×5 (09:41→23:30)
[2018-07-30] MEDS ORDERED: oxyCODONE 5 mg Immediate Release Tab PO PRN (09:45)
--- NOTE | 2018-07-30 12:59 | CP.PCM.PN ---
Subjective - Date & Time of Evaluation Date of Evaluation: 07/30/18 Time of Evaluation: 11:00 - Subjective Subjective: Patient seen sitting in chair in no acute distress. He complains of bilateral quadriceps weakness and pain, severity 11/10 on left and 8/10 on right. He is unable to get up out of chair without the use of his arms and was only able to tolerate ambulating with the assistance of PT. He also complains of chronic left knee pain which has not resolved in 20 years. He denies chills, headache, dizziness, nausea, vomitting, chest pain, shortness of breath, abdominal pain, diarrhea and constipation. Objective - Vital Signs/Intake and Output Vital Signs (last 24 hours): Temp Pulse Resp BP Pulse Ox 97.8 F 75 20 190/97 H 99 07/30/18 08:39 07/30/18 12:13 07/30/18 08:39 07/30/18 12:13 07/30/18 11:08 - Medications Medications: Current Medications Acetaminophen (Tylenol 325mg Tab) 325 mg PO Q4 PRN PRN Reason: Pain, Mild (1-3) Acetaminophen (Tylenol 325mg Tab) 650 mg PO Q4 PRN PRN Reason: Pain, moderate (4-7) Allopurinol (Zyloprim) 100 mg PO DAILY [facility] Last Admin: 07/30/18 09:41 Dose: 100 mg Amlodipine Besylate (Norvasc) 5 mg PO DAILY [facility] Last Admin: 07/30/18 12:13 Dose: 5 mg Atorvastatin Calcium (Lipitor) 20 mg PO HS [facility] Last Admin: 07/30/18 00:00 Dose: 20 mg Dexamethasone (Decadron Inj) 10 mg IVP Q12 [facility] Gabapentin (Neurontin) 800 mg PO TID [facility] Last Admin: 07/30/18 09:40 Dose: 800 mg Home Med (Bictegrav/Emtricit/Tenofov Ala [Biktarvy 50-200-25 Mg Tablet]) 1 tab PO DAILY [facility] Hydralazine HCl (Apresoline) 10 mg PO QID PRN PRN Reason: Other Sodium Chloride (Sodium Chloride 0.9%) 1,000 mls @ 125 mls/hr IV .Q8H [facility] Stop: 07/30/18 22:36 Last Admin: 07/30/18 07:56 Dose: Not Given Insulin Human Regular (Humulin R) 0 units SC ACHS [facility] PRN Reason: Protocol Last Admin: 07/30/18 12:10 Dose: Not Given Losartan Potassium (Cozaar) 100 mg PO DAILY [facility] Last Admin: 07/30/18 09:31 Dose: 100 mg Metoprolol Tartrate (Lopressor) 100 mg PO BID [facility] Last Admin: 07/30/18 06:14 Dose: 100 mg Nicotine (Nicoderm Cq) 1 patch TD DAILY [facility] Last Admin: 07/30/18 09:38 Dose: 1 patch Oxycodone HCl (Oxycodone Immediate Release Tab) 5 mg PO Q8 PRN PRN Reason: Pain, severe (8-10) Last Admin: 07/30/18 12:05 Dose: 5 mg Pantoprazole Sodium (Protonix Ec Tab) 20 mg PO DAILY [facility] Last Admin: 07/30/18 09:41 Dose: 20 mg Sitagliptin Phosphate (Januvia) 100 mg PO DAILY [facility] Last Admin: 07/30/18 09:38 Dose: 100 mg - Labs Labs: 07/29/18 18:00 07/30/18 05:45 PT 12.0 Seconds (9.8-13.1) 07/29/18 18:00 INR 1.1 07/29/18 18:00 APTT 24.4 Seconds (25.6-37.1) L 07/29/18 18:00 - Constitutional Appears: Non-toxic - Head Exam Head Exam: ATRAUMATIC - Eye Exam Eye Exam: Normal appearance - ENT Exam ENT Exam: Normal External Ear Exam - Neck Exam Neck Exam: Full ROM - Respiratory Exam Respiratory Exam: Clear to Ausculation Bilateral, NORMAL BREATHING PATTERN - Cardiovascular Exam Cardiovascular Exam: REGULAR RHYTHM - GI/Abdominal Exam GI & Abdominal Exam: absent: Tenderness - Extremities Exam Additional comments: bilateral atrophy of quadriceps - Neurological Exam Neurological Exam: Alert, Awake, Normal Gait (slow - witnessed with PT ), Oriented x3 - Psychiatric Exam Psychiatric exam: Normal Affect, Normal Mood - Skin Skin Exam: Normal Color, Warm Assessment and Plan - Assessment and Plan (Free Text) Assessment: 57 yr old male admitted for acute on chronic worsening bilateral lower extremity weakness since Dr Parkinson titrated down his prednisone dose. Reports 5 falls in the last 2 days. PMHx includes HIV, HCV, Lower GI bleed, NIDDM, HTN, thrombocytopenia, Gout, polymyositis on chronic prednisone, left total knee replacement, asthma, chronic muscle weakness and poor balance. Symmetric bilateral weakness of lower extremities -Likely secondary to polymyositis vs. chronic steroid use -Consult Neurology (Dr. Ortiz) -EMG and Nerve conduction: bringing results from study earlier this year -Physical Therapy: recommends PT outpatient, specifically balance therapy Polymyositis -Dexamethasone 10mg IV Q12 (as per Dr. Parkinson) -ESR: 42 -Creatine kinase: 45 -Pain management: oxycodone 5mg PO Q8; gabaptentin 800 mg PO TID Chronic left Knee pain s/p Left Total Knee Arthroplasty -Bilateral knee XR: advanced atherosclerotic vascular calcifications, no acute displaced fracture or dislocation -Consult Dr. Parks (Orthopedic): lower extremity CT (07/30) - awaiting results Dehydration -IV Fluid: NS @ 125 mls -BUN/Cr 26/0.7 Diabetes Mellitus -Chronic, controlled, HgA1C 6.0 (04/30/18) -Regular Insulin sliding scale according to Accucheck -Januvia 100mg PO HTN -Uncontrolled, BP max 190/97 -Lopressor 100 mg PO BID -Losartan 100 mg PO daily -Atorvastatin 20 mg PO daily -Amlodipine 5 mg PO daily -Hydralazine 10 mg PO QID PRN Gout -Allopurinol 100mg PO daily HIV -Biktarvy (home medication) DVT Prophylaxis -Patient ambulating
--- NOTE | 2018-07-30 14:48 | CP.PCM.CON ---
History of Present Illness - History of Present Illness History of Present Illness: Orthopedic consult: Dr. Parks Patient is a 57 y/o male with PMH of polymyositis, HIV, HCV, NIDDM, HTN, thrombocytopenia, gout, asthma c/o left knee pain. He has had knee pain for many years following his L TKA performed 20-25 years ago. He also notes that the L TKA was revised 1 year following the original procedure. The pain has worsened over the past year and presented to [facility] due to the inability to bear weight and walk over the past couple of days. This is due to pain and weakness. He has been attending physical therapy 2-3 per week for the past year without much improvement. He is currently taking oxycodone daily for chronic pain issues related to his polymyositis. He has also taken prednisone for many years which has been tapered over the past month by his neurologist. Currently his pain is moderate, dull, aching and diffuse. The pain is worsened with WB, bending and walking. The pain alleviates with rest. He denies radiation of pain , numbness and tingling. He also denies CP/SOB/N/V/D/fever/dysuria/melena. Review of Systems - Review of Systems All systems: reviewed and no additional remarkable complaints except Review of Systems: as per HPI Past Patient History - Past Medical History & Family History Past Medical History?: Yes Past Family History: Reviewed and not pertinent - Past Social History Smoking Status: Current Some Days Smoker Alcohol: Social Drugs: Prescription medications - CARDIAC Hx Cardiac Disorders: Yes Hx Hypertension: Yes - PULMONARY Hx Respiratory Disorders: No - NEUROLOGICAL Hx Neurological Disorder: Yes Hx Seizures: Yes - HEENT Hx HEENT Problems: No - RENAL Hx Chronic Kidney Disease: No - ENDOCRINE/METABOLIC Hx Endocrine Disorders: Yes Hx Diabetes Mellitus Type 2: Yes - HEMATOLOGICAL/ONCOLOGICAL Hx Blood Disorders: Yes Hx Hepatitis C: Yes Hx Human Immunodeficiency Virus (HIV): Yes - INTEGUMENTARY Hx Dermatological Problems: Yes Hx Eczema: Yes - MUSCULOSKELETAL/RHEUMATOLOGICAL Hx Musculoskeletal Disorders: Yes Hx Falls: Yes - GASTROINTESTINAL Hx Gastrointestinal Disorders: Yes Hx Ulcer: Yes Other/Comment: Liver Cirrhosis - GENITOURINARY/GYNECOLOGICAL Hx Genitourinary Disorders: No - PSYCHIATRIC Hx Psychophysiologic Disorder: No Hx Substance Use: No - SURGICAL HISTORY Hx Surgeries: Yes Hx Arthroscopy: Yes (L knee) Hx Joint Replacement: Yes (L TKA, L revision TKA) - ANESTHESIA Hx Anesthesia: Yes Hx Anesthesia Reactions: No Hx Malignant Hyperthermia: No Meds Allergies/Adverse Reactions: Allergies Allergy/AdvReac Type Severity Reaction Status Date / Time No Known Allergies Allergy Verified 04/14/18 12:09 - Medications Medications: Current Medications Acetaminophen (Tylenol 325mg Tab) 325 mg PO Q4 PRN PRN Reason: Pain, Mild (1-3) Acetaminophen (Tylenol 325mg Tab) 650 mg PO Q4 PRN PRN Reason: Pain, moderate (4-7) Allopurinol (Zyloprim) 100 mg PO DAILY [facility] Last Admin: 07/30/18 09:41 Dose: 100 mg Amlodipine Besylate (Norvasc) 5 mg PO DAILY [facility] Last Admin: 07/30/18 12:13 Dose: 5 mg Atorvastatin Calcium (Lipitor) 20 mg PO HS [facility] Last Admin: 07/30/18 00:00 Dose: 20 mg Dexamethasone (Decadron Inj) 10 mg IVP Q12 [facility] Gabapentin (Neurontin) 800 mg PO TID [facility] Last Admin: 07/30/18 13:37 Dose: 800 mg Home Med (Bictegrav/Emtricit/Tenofov Ala [Biktarvy 50-200-25 Mg Tablet]) 1 tab PO DAILY [facility] Hydralazine HCl (Apresoline) 10 mg PO QID PRN PRN Reason: Other Sodium Chloride (Sodium Chloride 0.9%) 1,000 mls @ 125 mls/hr IV .Q8H [facility] Stop: 07/30/18 22:36 Last Admin: 07/30/18 07:56 Dose: Not Given Insulin Human Regular (Humulin R) 0 units SC [facility] PRN Reason: Protocol Last Admin: 07/30/18 12:10 Dose: Not Given Losartan Potassium (Cozaar) 100 mg PO DAILY [facility] Last Admin: 07/30/18 09:31 Dose: 100 mg Metoprolol Tartrate (Lopressor) 100 mg PO BID [facility] Last Admin: 07/30/18 09:40 Dose: Not Given Nicotine (Nicoderm Cq) 1 patch TD DAILY [facility] Last Admin: 07/30/18 09:38 Dose: 1 patch Oxycodone HCl (Oxycodone Immediate Release Tab) 5 mg PO Q8 PRN PRN Reason: Pain, severe (8-10) Last Admin: 07/30/18 12:05 Dose: 5 mg Pantoprazole Sodium (Protonix Ec Tab) 20 mg PO DAILY [facility] Last Admin: 07/30/18 09:41 Dose: 20 mg Sitagliptin Phosphate (Januvia) 100 mg PO DAILY [facility] Last Admin: 07/30/18 09:38 Dose: 100 mg Physical Exam - Constitutional Appears: Well, No Acute Distress - Head Exam Head Exam: ATRAUMATIC, NORMOCEPHALIC - Eye Exam Eye Exam: EOMI, Normal appearance, PERRL - ENT Exam ENT Exam: Mucous Membranes Moist - Respiratory Exam Respiratory Exam: Clear to Auscultation Bilateral, NORMAL BREATHING PATTERN - Cardiovascular Exam Cardiovascular Exam: +S1, +S2 - GI/Abdominal Exam GI & Abdominal Exam: Normal Bowel Sounds, Soft - Extremities Exam Additional comments: L knee: mild swelling, diffuse anterior tenderness old medial TKR scar well healed ROM 0-30 deg sensation intact SP/DP/TN motor intact EHL/FHL/TA/G pedal pulses intact comps soft NT b/l Results - Vital Signs Recent Vital Signs: Last Vital Signs Temp 97.8 F 07/30/18 08:39 Pulse 75 07/30/18 12:13 Resp 20 07/30/18 08:39 BP 190/97 H 07/30/18 12:13 Pulse Ox 99 07/30/18 11:08 - Labs Result Diagrams: 07/29/18 18:00 07/30/18 05:45 Labs: Laboratory Results - last 24 hr 07/29/18 07/29/18 07/29/18 18:00 18:00 18:00 WBC 10.1 RBC 3.43 L Hgb 13.1 Hct 37.5 MCV 109.2 H MCH 38.1 H MCHC 34.9 RDW 14.3 Plt Count 75 L MPV 9.7 Neut % (Auto) 87.7 H Lymph % (Auto) 8.0 L [place] % (Auto) 4.1 Eos % (Auto) 0.0 Baso % (Auto) 0.2 Neut # (Auto) 8.9 H Lymph # (Auto) 0.8 L [place] # (Auto) 0.4 Eos # (Auto) 0.0 Baso # (Auto) 0.0 Neutrophils % (Manual) 86 H Band Neutrophils % 1 Lymphocytes % (Manual) 8 L Monocytes % (Manual) 4 Metamyelocytes % 1 H Platelet Estimate Decreased L Large Platelets Present Macrocytosis (manual) Slight ESR PT 12.0 INR 1.1 APTT 24.4 L Sodium 137 Potassium 3.8 Chloride 102 Carbon Dioxide 23 Anion Gap 16 BUN 28 H Creatinine 0.7 L Est GFR ( Amer) > 60 Est GFR (Non-Af Amer) > 60 POC Glucose (mg/dL) Random Glucose 184 H Calcium 9.8 Magnesium 1.9 Total Bilirubin 0.7 AST 33 ALT 41 Alkaline Phosphatase 89 Total Creatine Kinase Troponin I < 0.0120 Total Protein 7.2 Albumin 4.0 Globulin 3.2 Albumin/Globulin Ratio 1.3 Urine Color Urine Clarity Urine pH Ur Specific [place] Urine Protein Urine Glucose (UA) Urine Ketones Urine Blood Urine Nitrate Urine Bilirubin Urine Urobilinogen Ur Leukocyte Esterase Urine RBC (Auto) Urine Microscopic WBC Ur Squamous Epith Cells 07/29/18 07/29/18 07/29/18 19:17 22:54 22:54 WBC RBC Hgb Hct MCV MCH MCHC RDW Plt Count MPV Neut % (Auto) Lymph % (Auto) [place] % (Auto) Eos % (Auto) Baso % (Auto) Neut # (Auto) Lymph # (Auto) [place] # (Auto) Eos # (Auto) Baso # (Auto) Neutrophils % (Manual) Band Neutrophils % Lymphocytes % (Manual) Monocytes % (Manual) Metamyelocytes % Platelet Estimate Large Platelets Macrocytosis (manual) ESR 43 H PT INR APTT Sodium Potassium Chloride Carbon Dioxide Anion Gap BUN Creatinine Est GFR ( Amer) Est GFR (Non-Af Amer) POC Glucose (mg/dL) Random Glucose Calcium Magnesium Total Bilirubin AST ALT Alkaline Phosphatase Total Creatine Kinase 45 L Troponin I Total Protein Albumin Globulin Albumin/Globulin Ratio Urine Color Yellow Urine Clarity Clear Urine pH 6.0 Ur Specific [place] 1.021 Urine Protein 100 Urine Glucose (UA) 50 Urine Ketones Negative Urine Blood Negative Urine Nitrate Negative Urine Bilirubin Negative Urine Urobilinogen 4.0 Ur Leukocyte Esterase Neg Urine RBC (Auto) 3 Urine Microscopic WBC 1 Ur Squamous Epith Cells 1 07/30/18 07/30/18 05:29 05:45 WBC RBC Hgb Hct MCV MCH MCHC RDW Plt Count MPV Neut % (Auto) Lymph % (Auto) [place] % (Auto) Eos % (Auto) Baso % (Auto) Neut # (Auto) Lymph # (Auto) [place] # (Auto) Eos # (Auto) Baso # (Auto) Neutrophils % (Manual) Band Neutrophils % Lymphocytes % (Manual) Monocytes % (Manual) Metamyelocytes % Platelet Estimate Large Platelets Macrocytosis (manual) ESR PT INR APTT Sodium 134 Potassium 4.8 Chloride 106 Carbon Dioxide 20 L Anion Gap 13 BUN 26 H Creatinine 0.7 L Est GFR ( Amer) > 60 Est GFR (Non-Af Amer) > 60 POC Glucose (mg/dL) 192 H Random Glucose 208 H Calcium 9.5 Magnesium Total Bilirubin AST ALT Alkaline Phosphatase Total Creatine Kinase Troponin I Total Protein Albumin Globulin Albumin/Globulin Ratio Urine Color Urine Clarity Urine pH Ur Specific [place] Urine Protein Urine Glucose (UA) Urine Ketones Urine Blood Urine Nitrate Urine Bilirubin Urine Urobilinogen Ur Leukocyte Esterase Urine RBC (Auto) Urine Microscopic WBC Ur Squamous Epith Cells Assessment & Plan (1) Painful total knee replacement, left Assessment and Plan: -CT L knee -pain control -L revision TKA will likely be recommended if prosthetic loosening is found -PT/OT WBAT -above d/w Dr. Parks in agreement Status: Acute
--- NOTE | 2018-07-30 15:30 | CT ---
Date of service: 07/30/2018 PROCEDURE: CT of the bilateral knee joints. HISTORY: Hx of L knee surgery; fell 5X past 2days; weakness COMPARISON: Plain radiographs 07/29/2018 TECHNIQUE: Contiguous axial images of the right hip were obtained. Coronal and sagittal reformats were generated. This CT exam was performed using one or more of the following dose reduction techniques: Automated exposure control, adjustment of the mA and/or kV according to patient size, and/or use of iterative reconstruction technique. FINDINGS: BONES: There is diffuse bone demineralization. There is no acute displaced fracture or bone destruction. Bone alignment is normal. Right knee joint: There is mild tricompartmental degenerative osteoarthrosis with reduced joint spaces and chondrocalcinosis, worse in the medial compartment. Small suprapatellar joint effusion. Left knee joint: Status post total cemented knee arthroplasty. No evidence for hardware complications. SOFT TISSUES: The periarticular soft tissues are normal. IMPRESSION: 1. No acute displaced fracture or dislocation. 2. Mild tricompartmental degenerative osteoarthrosis in the right knee joint, worse in the medial compartment. Small suprapatellar joint effusion. 3. Status post total left knee arthroplasty. No dislocation.
[2018-07-30 23:42] VITALS: BP 160/88; PULSE 88; RESP 20; TEMP 98.2; O2SAT 98
--- NOTE | 2018-07-30 23:58 | CP.PCM.PCO ---
Physician Communication Note - Physician Communication Note Physician Communication Note: paged by nurse: patient found taking home medication-bottle hidden Assessment/Plan - Assessment and Plan (Free Text) Assessment: Patient seen at bedside, dressed in his home clothes and ambulating from bed to bathroom without difficulty, upset and uncooperative, belligerant stating " I have my own f!@#$%^ pain medication, I don't need yours, I will leave now and take my f!@#$%^ medication at home". Patient pulled out his peripheral IV line. Benefits of staying and risks of leaving against medical advice discussed with patient, patient stated he does not want to discuss any further and will sign papers and leave at this moment. -AMA papers reviewed, patient signed them; called his and continued with hostile language over the phone with her. - Date & Time Date: 07/30/18 Time: 23:58
== END 2018-07-30 23:58 | disposition left against medical advice (07) ==
LOC: H.ER 15:47 → H.ERHOLD 19:26 → H.MEDSURG1 23:00
PROVIDERS: ADMIT Hospitalist; ATTEND Hospitalist
DX: T84.84XA Pain due to internal orthopedic prosthetic devices, implants and grafts, initial encounter (principal); Z96.652 Presence of left artificial knee joint; Y83.8 Other surgical procedures as the cause of abnormal reaction of the patient, or of later complication, without mention of misadventure at the time of the procedure; E86.0 Dehydration; G89.29 Other chronic pain; Z21 Asymptomatic human immunodeficiency virus [HIV] infection status; I10 Essential (primary) hypertension; J45.909 Unspecified asthma, uncomplicated; Z72.0 Tobacco use; D69.6 Thrombocytopenia, unspecified; M10.9 Gout, unspecified; Z79.52 Long term (current) use of systemic steroids; M33.20 Polymyositis, organ involvement unspecified; K74.60 Unspecified cirrhosis of liver; B19.20 Unspecified viral hepatitis C without hepatic coma; E11.65 Type 2 diabetes mellitus with hyperglycemia
CPT/HCPCS: 36415; 70450; 71045; 73562; 73700; 80048; 80053; 81003; 82550; 82948; 83735; 84484; 85025; 85610; 85651; 85730; 93005; 97116; 97161; 97165; 99285; G0378; G8978; G8979; G8987; G8988; J1100; J7030